=== PATIENT | male | born 1980 | race Caucasian/White ===

== ENCOUNTER 2018-02-20 16:57 | Inpatient (IN) | payer MEDICARE, MEDICAID ==
[2018-02-20] MEDS ORDERED: Sodium Chloride 0.45% 1,000 ML IV ONE (17:00)
[2018-02-20] MEDS ORDERED: Acetaminophen 500 MG TAB PO ONE (17:00)
[2018-02-20] MEDS ORDERED: Haloperidol Lactate 5 mg/mL 1mL Vial IM ONE (17:11)
[2018-02-20] MEDS ORDERED: Haloperidol Lactate 5 mg/mL 1mL Vial IVP ONE (17:11)
[2018-02-20] MEDS ORDERED: Haloperidol Lactate 5 mg/mL 1mL Vial ONE (17:21)
[2018-02-20] MEDS ORDERED: Acetaminophen 500 MG TAB ONE (17:42)
[2018-02-20 17:50] LABS: % EOSINOPHILS 0.3 % (0.0-5.0); % LYMPHOCYTES 12.9 % (20.0-50.0); % MONOCYTES 8.4 % (2.0-10.0); % NEUTROPHILS 76.4 % (40.0-80.0); BASOPHILE ABSOLUTE 0.2 Th/cumm (0-0.2); HEMATOCRIT 47.9 % (41.0-60); HEMOGLOBIN 15.8 gm/dL (12-16); LYMPHOCYTE ABSOLUTE 1.5 Th/cmm (1.5-3.0); MEAN CORPUSCULAR HEMOGLOBIN 29.1 pg (26.0-30.0); MEAN CORPUSCULAR HGB CONC 33.1 pg (28.0-36.0); MEAN PLATELET VOLUME 7.5 fl; NEUTROPHILE ABSOLUTE 9.2 Th/cmm (1.8-8.0); PLATELET COUNT 430 Th/cmm (150-400); RED BLOOD COUNT 5.44 Mil/cmm (4.30-5.70); RED CELL DISTRIBUTION WIDTH 12.3 % (11.5-20.0); WHITE BLOOD COUNT 11.9 Th/cmm (4.8-10.8)
[2018-02-20 17:52] LABS: INR 1.17 (0.5-1.4); PROTHROMBIN TIME (TEST) 12.1 SECONDS (9.5-11.5)
[2018-02-20 17:56] LABS: ALB/GLOB RATIO 1.6 (1.0-1.8); ALBUMIN 4.8 gm/dL (4.2-5.5); ALKALINE PHOSPHATASE 99 U/L (34-104); ANION GAP 19.4 (7.0-16.0); BILIRUBIN,TOTAL 0.6 mg/dL (0.3-1.0); BUN - UREA NITROGEN 31 mg/dL (7-25); CALCIUM SERUM 10.3 mg/dL (8.6-10.3); CARBON DIOXIDE 22.2 mEq/L (21.0-31.0); CHLORIDE 111 mEq/L (98-107); GFR AFRICAN-AMERICAN > 60.0 ml/min (>90); GFR NON AFRICAN-AMERICAN > 60.0 ml/min; GLUCOSE 113 mg/dL (70-105); POTASSIUM SERUM 3.6 mEq/L (3.5-5.1); SGOT 43 U/L (13-39); SGPT/ALT 29 U/L (7-52); SODIUM SERUM 149 mEq/L (136-145); TOTAL PROTEIN,SERUM 7.8 gm/dL (6.0-8.3)
[2018-02-20] MEDS ORDERED: Diatrizoate Meglumine/Diatri 30 mL Sol ONE (18:13)
--- NOTE | 2018-02-20 18:40 | ED Physician Chart ---
ED Chief Complaint/HPI - Patient Information Date Seen:: 02/20/18 Time Seen:: 17:20 Chief Complaint:: g-tube removed History of Present Illness:: this is a 37 yo retarded male sent from a prison for replacement of the g- tube displacement. he is chronically ill and has psychosis. Allergies:: Allergies Allergy/AdvReac Type Severity Reaction Status Date / Time No Known Allergies Allergy Verified 02/20/18 17:08 Vitals:: Vital Signs - 8 hr 02/20/18 17:12 HR 130 RR 20 BP 117/77 O2 Sat % 92 Historian:: Medical Records Review:: Nurse's Note Reviewed, Old Chart Reviewed ED Review of Systems - Review of Systems General/Constitutional: No fever, No chills, No weight loss, No weakness, No diaphoresis, No edema, No loss of appetite, Other (this patient is unable to give a review of systems.) Skin: No skin lesions, No rash, No bruising Head: No headache, No light-headedness Eyes: No loss of vision, No pain, No diplopia ENT: No earache, No nasal drainage, No sore throat, No tinnitus Neck: No neck pain, No swelling, No thyromegaly, No stiffness, No mass noted Cardio Vascular: No chest pain, No palpitations, No PND, No orthopnea, No edema Pulmonary: No SOB, No cough, No sputum, No wheezing GI: No nausea, No vomiting, No diarrhea, No pain, No melena, No hematochezia, No constipation, No hematemesis G/U: No dysuria, No frequency, No hematuria Musculoskeletal: No bone or joint pain, No back pain, No muscle pain Endocrine: No polyuria, No polydipsia Psychiatric: No prior psych history, No depression, No anxiety, No suicidal ideation Hematopoietic: No bruising, No lymphadenopathy Allergic/Immuno: No urticaria, No angioedema Neurological: No syncope, No focal symptoms, No weakness, No paresthesia, No headache, No seizure, No dizziness, No confusion, No vertigo ED Past Medical History - Past Medical History Obtainable: Yes Past Medical History: Dementia Family History: None Social History: Non Smoker, No Alcohol, No Drug Use, Care Facility Surgical History: PEG/GTube Psychiatricy History: Bipolar, Dementia Family Medical History - Family Member Mother History Unknown: Yes Living Status: Still Living ED Physical Exam - Physical Examination General/Constitutional: Awake, Well-developed, well-nourished, Alert, No distress, GCS 15, Non-toxic appearing, Ambulatory Other Gen/Cons comments:: this patient is disoriented times four and unable to communicate. Head: Atraumatic Eyes: Lids, conjuctiva normal, PERRL, EOMI Skin: Nl inspection, No rash, No skin lesions, No ecchymosis, Well hydrated, No lymphadenopathy ENMT: External ears, nose nl, Nasal exam nl, Lips, teeth, gums nl Neck: Nontender, Full ROM w/o pain, No JVD, No nuchal rigidity, No bruit, No mass, No stridor Respiratory: Nl effort/Exclusion, Clear to Auscultation, No Wheeze/Rhonchi/Rales Cardio Vascular: RRR, No murmur, gallop, rubs, NL S1 S2 GI: No tenderness/rebounding/guarding, No organomegaly, No hernia, Normal BS's, Nondistended, No mass/bruits, No McBurney tenderness Other GI comments:: g-tube opening is intact. : No CVA tenderness Extremities: No tenderness or effusion, Full ROM, normal strength in all extremities, No edema, Normal digits & nails Neuro/Psych: Alert/oriented, DTR's symmetric, Normal sensory exam, Normal motor strength, Judgement/insight normal, Mood normal, Normal gait, No focal deficits Misc: Normal back, No paraspinal tenderness ED Labs/Radiology/EKG Results - Lab Results Results: Laboratory Tests 02/20/18 02/20/18 02/20/18 17:21 17:21 17:21 WBC 11.9 H RBC 5.44 Hgb 15.8 Hct 47.9 MCV 88.0 MCH 29.1 MCHC Differential 33.1 RDW 12.3 Plt Count 430 H MPV 7.5 Neutrophils % 76.4 Lymphocytes % 12.9 L Monocytes % 8.4 Eosinophils % 0.3 Basophils % 2.0 PT 12.1 H INR 1.17 PTT (Actin FS) 26.2 Sodium 149 H Potassium 3.6 Chloride 111 H Carbon Dioxide 22.2 Anion Gap 19.4 H BUN 31 H Creatinine 1.0 Est GFR ( Amer) > 60.0 Est GFR (Non-Af Amer) > 60.0 BUN/Creatinine Ratio 31.0 Glucose 113 H Calcium 10.3 Total Bilirubin 0.6 AST 43 H ALT 29 Alkaline Phosphatase 99 Total Protein 7.8 Albumin 4.8 Globulin 3.0 Albumin/Globulin Ratio 1.6 - Radiology Results Results: ct scan of the abdomen = fecal impaction ED Assessment - Assessment General Assessment: fever, fecal impaction, hernia. ED Septic Shock - . Is Septic Shock (SBP<90, OR Lactate>4 mmol\L) present?: No - <6hrs of presentation: Vital Signs: Vital Signs - 8 hr 02/20/ 17:12 HR 130 RR 20 BP 117/77 O2 Sat % 92 ED Reassessment (Disposition) - Diagnosis Diagnosis:: fecal impaction fever dementia - Patient Disposition Discharge/Transfer:: Acute Care w/in this hosp Admitted to:: Med/Surg Admitting Medical Physician:: Aristides Mendoza Condition at Disposition:: Unchanged
[2018-02-20 19:15] LABS: URINE COLOR YELLOW; URINE SOURCE CLEAN CATCH
[2018-02-20 19:16] LABS: URINE BILIRUBIN SMALL (NEGATIVE); URINE CLARITY CLEAR (CLEAR); URINE GLUCOSE (UA) NEGATIVE (NEGATIVE); URINE KETONE 40 mg/dL (NEGATIVE)
[2018-02-20 19:17] LABS: URINE BLOOD NEGATIVE (NEGATIVE); URINE LEUKOCYTE ESTERASE NEGATIVE (NEGATIVE); URINE MICROSCOPIC INDICATED? YES; URINE NITRATE NEGATIVE (NEGATIVE); URINE PROTEIN NEGATIVE (NEGATIVE); URINE UROBILINOGEN 0.2 E.U./dL (0.2 - 1.0)
[2018-02-20 19:18] LABS: URINE BACTERIA FEW /hpf (NONE SEEN); URINE EPITHELIAL CELLS FEW /lpf (FEW); URINE RBC 0-2 /hpf (0-5); URINE WBC 0-2 /hpf (0-5)
[2018-02-20] MEDS ORDERED: Sodium Chloride 0.45% 1,000 ML IV SCH (21:53)
[2018-02-20 23:21] VITALS: BP 120/70
[2018-02-21] MEDS: Lactulose 10 Gm/15 mL 30mL UDC PO SCH ×5 (02:50→19:48)
[2018-02-21] MEDS ORDERED: Haloperidol Lactate 5 mg/mL 1mL Vial IM STA (05:22)
[2018-02-21] MEDS ORDERED: Haloperidol Lactate 5 mg/mL 1mL Vial IM ONE (07:34)
--- NOTE | 2018-02-21 09:53 | Diagnostic Imaging Report ---
CT scan of the abdomen and pelvis without intravenous contrast History: Pain Total DLP equals 570 CTDI equals 10.4 Axial sections were obtained from the xiphoid process down to the pubic symphysis. Generous hepatic size. No focal lesions are seen. The spleen appears somewhat enlarged. No abnormalities are seen in the region of the pancreas. The kidneys appear normal bilaterally. The exam of the pelvis demonstrates a markedly distended stool-filled rectum and sigmoid colon along with mildly dilated large bowel. Findings consistent with changes of fecal impaction/constipation. No abnormal soft tissue masses or fluid collections seen within the pelvis. IMPRESSION: 1. Markedly distended stool-filled rectum and sigmoid colon with mildly distended stool-filled large bowel. Changes consistent with fecal impaction and constipation. 2. Suggestion of hepatosplenomegaly
[2018-02-21] MEDS ORDERED: Fleet Enema 135 mL RC ONE (13:05)
[2018-02-21] MEDS ORDERED: cefTRIAXone 1 GM in Sodium Chloride 0.9% 50 ML IV SCH (17:00)
[2018-02-22] MEDS: Lactulose 10 Gm/15 mL 30mL UDC PO SCH ×4 (00:28→20:43)
--- NOTE | 2018-02-22 00:49 | Consultation ---
DATE OF CONSULTATION: 02/21/2018 The patient was seen and evaluated. The patient's chart reviewed. At the med/surg. REASON FOR CONSULTATION: Agitation. HISTORY OF PRESENT ILLNESS: A 37-year-old male, who was brought in here with a history of developmental delay, brought in here after the patient was found to have a fever, fecal impaction, and presented very agitated and disoriented. Today on [id number] evaluation, the patient needed lot of redirections to maintain simple instructions. He is nonverbal, disengaged in the interview, and attempted to walk away. CURRENT MEDICAL PROBLEMS: Includes fecal impaction and fever. PAST PSYCHIATRIC HISTORY: History of developmental delay. ALLERGIES TO MEDICATION: NKDA. Labs were reviewed. CURRENT MEDICATIONS: The patient is on haloperidol recently given at 7:30 a.m., lactulose, and also on ceftriaxone. FAMILY PSYCHIATRIC HISTORY: Noncontributory. SOCIAL HISTORY: Currently lives in a board and care. MENTAL STATUS EXAMINATION: Developmental delay, nonverbal, disengaged, poor historian, and oriented x 2. ASSESSMENT AND PLAN: The patient is a 37-year-old male. Symptoms are very consistent with delirium secondary to the fecal impaction and fever. We recommend for the primary medical team to continue addressing the underlying medical illnesses that will address the underlying agitation and psychotic behavior. In the meantime to address the agitation behavior, we recommend Seroquel 50 mg p.o. b.i.d. We will be obtaining more collateral based on the information. If the patient continues to refuse p.o. may consider also Haldol 5 mg and 1 mg of Ativan IM or to reduce the risk of constipation with fecal impaction, reduce any anticholinergic, and also recommend to minimize the use of benzodiazepines as they could also exacerbate the patient's delirium. Therefore, recommend to stop the use of Seroquel as noted above. DIAGNOSES: Unspecified psychosis and delirium. SECONDARY DIAGNOSIS: Developmental delay. MEDICAL DIAGNOSIS: Fecal infection. PLAN: 1. No criteria met for 5150. 2. Continue with medication regimen as suggested above. 3. We will continue to follow alongside. Thank you for the consultation. JOB# [id number]
[2018-02-22] MEDS: Haloperidol Lactate 5 mg/mL 1mL Vial IM PRN ×2 (04:20→20:58)
--- NOTE | 2018-02-22 04:50 | History & Physical ---
ADMIT DATE: 02/21/2018 CHIEF COMPLAINT: Fever and agitation. HISTORY OF PRESENT ILLNESS: The patient is a 37-year-old male with a past medical history of mental retardation, brought in from [facility] facility for fever and agitation. On initial evaluation, the patient's temperature was 98.1 degrees Fahrenheit and WBC count was 11,900. The patient is unable to give any history. On further evaluation, the patient was found to have UTI and Rocephin was started. PAST MEDICAL HISTORY: Agitation and dementia. ALLERGIES: NKDA. MEDICATIONS: As per medication reconciliation sheet. SOCIAL HISTORY: The patient lives in a nursing [facility] facility. No history of smoking, alcohol or drug use. PAST SURGICAL HISTORY: PEG placement. PSYCHIATRIC HISTORY: Bipolar, dementia, and psychosis. REVIEW OF SYSTEMS: Unable to obtain. The patient has on and off fevers. The patient was agitated at times. PHYSICAL EXAMINATION: CURRENT VITAL SIGNS: Shows temperature is 100.3 degrees Fahrenheit, pulse 85, respirations 18, blood pressure 161/71. GENERAL: The patient is comfortable, lying in the bed, not in acute distress. HEENT: Head is normocephalic, atraumatic. Oral cavity moist, pink tongue. Eyes: No pallor, no icterus. Pupils PERRLA, EOMI. NECK: Supple, no JVD, no carotid bruit. Trachea in midline. CHEST: Bilateral breath sounds. No crackles or wheezing. HEART: S1, S2 within normal limits. Regular rhythm. No murmur or gallop. ABDOMEN: Soft, nontender, nondistended. Bowel sounds present. EXTREMITIES: No cyanosis, no clubbing, no edema. NEUROLOGIC: Alert and awake. LABORATORY DATA: Current lab shows WBC count is 11,900, hemoglobin 15.8, hematocrit is 47.9, platelets are 430,000, neutrophils 76.4%. INR 1.1. Sodium is 149, potassium 3.6, chloride 111, bicarbonate is 22.2, BUN is 31, creatinine is 1, glucose is 113. AST 43, ALT 29, alkaline phosphatase is 29. Urinalysis showed a few bacteria and leukoesterase negative, wbc's 0-2. Blood culture [address] scan of abdomen and pelvis showed markedly distended stool filled rectum and the sigmoid colon with mildly distended stool filled large bowel consistent with fecal impaction and constipation, hepatosplenomegaly. IMPRESSION: 1. Agitation. 2. Urinary tract infection. 3. Fecal impaction. PLAN: Continue Rocephin and we will give lactulose. Give Fleet enema as needed. Ask for psych consultation. JOB# [id number] [facility]
[2018-02-22 07:12] LABS: HEMOGLOBIN 16.9 gm/dL (12-16)
[2018-02-22 07:15] LABS: HEMATOCRIT 50.1 % (41.0-60); MEAN CELL VOLUME 87.2 fl (80-99); MEAN CORPUSCULAR HEMOGLOBIN 29.5 pg (26.0-30.0); MEAN CORPUSCULAR HGB CONC 33.8 pg (28.0-36.0); MEAN PLATELET VOLUME 7.9 fl; PLATELET COUNT 407 Th/cmm (150-400); RED BLOOD COUNT 5.74 Mil/cmm (4.30-5.70); RED CELL DISTRIBUTION WIDTH 12.8 % (11.5-20.0)
[2018-02-22 07:20] LABS: WHITE BLOOD COUNT 21.3 Th/cmm (4.8-10.8)
[2018-02-22 07:38] LABS: ANION GAP 25.9 (7.0-16.0); BUN - UREA NITROGEN 31 mg/dL (7-25); CALCIUM SERUM 9.2 mg/dL (8.6-10.3); CARBON DIOXIDE 15.1 mEq/L (21.0-31.0); CHLORIDE 125 mEq/L (98-107); CREATININE - SERUM 1.4 mg/dL (0.7-1.3); GFR AFRICAN-AMERICAN > 60.0 ml/min (>90); GFR NON AFRICAN-AMERICAN > 60.0 ml/min; GLUCOSE 114 mg/dL (70-105)
[2018-02-22 07:39] LABS: BAND NEUTROPHILE 4 % (0-10); LYMPHOCYTE 7 % (20-50); NEUTROPHILS 83 % (40-80)
[2018-02-22 07:40] LABS: MONOCYTE 6 % (2-10)
[2018-02-22 07:46] LABS: SODIUM SERUM 163 mEq/L (136-145)
[2018-02-22] MEDS: Benztropine 1 MG TAB PO SCH ×2 (09:28→17:17)
--- NOTE | 2018-02-22 09:54 | Diagnostic Imaging Report ---
KUB abdominal film HISTORY: Pain Nondilated large and small bowel seen. There is a distended stool-filled rectum. Changes suggest fecal impaction. IMPRESSION: 1. Stool filled somewhat distended rectum consistent with a fecal impaction. Bowel gas pattern otherwise nonspecific.
[2018-02-22] MEDS ORDERED: Dextrose 5% 1,000 ML IV SCH (11:30)
[2018-02-22] MEDS ORDERED: D5-0.9%NS 1,000 ML IV SCH (11:30)
[2018-02-22] MEDS ORDERED: Albuterol Nebulizer 2.5mg/3mL HHN PRN (13:11)
[2018-02-22] MEDS ORDERED: Albuterol Nebulizer 2.5mg/3mL HHN ONE (13:25)
[2018-02-22 14:14] LABS: BASOPHILE ABSOLUTE 0.6 Th/cumm (0-0.2); HEMATOCRIT 52.7 % (41.0-60); HEMOGLOBIN 17.8 gm/dL (12-16); LYMPHOCYTE ABSOLUTE 1.3 Th/cmm (1.5-3.0); MEAN CELL VOLUME 87.8 fl (80-99); MEAN CORPUSCULAR HEMOGLOBIN 29.7 pg (26.0-30.0); MEAN CORPUSCULAR HGB CONC 33.8 pg (28.0-36.0); MEAN PLATELET VOLUME 7.9 fl; MONOCYTE ABSOLUTE 1.7 Th/cmm (0.3-1.0); NEUTROPHILE ABSOLUTE 18.4 Th/cmm (1.8-8.0); PLATELET COUNT 399 Th/cmm (150-400); RED CELL DISTRIBUTION WIDTH 12.5 % (11.5-20.0)
[2018-02-22 14:19] LABS: pH 7.44 (7.35-7.45)
[2018-02-22 14:30] LABS: ALB/GLOB RATIO 1.4 (1.0-1.8); ALBUMIN 4.7 gm/dL (4.2-5.5); ALKALINE PHOSPHATASE 98 U/L (34-104); ANION GAP 25.7 (7.0-16.0); BILIRUBIN,TOTAL 1.1 mg/dL (0.3-1.0); BUN - UREA NITROGEN 35 mg/dL (7-25); CALCIUM SERUM 9.4 mg/dL (8.6-10.3); CARBON DIOXIDE 16.2 mEq/L (21.0-31.0); CHLORIDE 125 mEq/L (98-107); CREATININE - SERUM 1.4 mg/dL (0.7-1.3); GFR AFRICAN-AMERICAN > 60.0 ml/min (>90); GFR NON AFRICAN-AMERICAN > 60.0 ml/min; GLUCOSE 130 mg/dL (70-105); SGOT 188 U/L (13-39); SGPT/ALT 76 U/L (7-52)
[2018-02-22] MEDS ORDERED: Vancomycin HCl 1.5 GM in Sodium Chloride 0.9% 500 ML IV ONE (14:30)
[2018-02-22 14:38] LABS: POTASSIUM SERUM 2.9 mEq/L (3.5-5.1); SODIUM SERUM 164 mEq/L (136-145)
[2018-02-22 15:11] LABS: % BASOPHILS 2.6 % (0.0-2.0); % EOSINOPHILS 0.2 % (0.0-5.0); % LYMPHOCYTES 5.7 % (20.0-50.0); % MONOCYTES 7.7 % (2.0-10.0); % NEUTROPHILS 83.8 % (40.0-80.0)
[2018-02-22 15:12] LABS: BAND NEUTROPHILE 1 % (0-10); BASOPHIL 0 % (0-3); EOSINOPHIL 1 % (0-5); LYMPHOCYTE 6 % (20-50); MONOCYTE 7 % (2-10); NEUTROPHILS 85 % (40-80)
[2018-02-22] MEDS ORDERED: Potassium Chloride 40 MEQ, Lidocaine 1% 20mL Vial 25 MG in Sodium Chloride 0.9% 250 ML IV ONE (16:00)
[2018-02-22] MEDS: Levofloxacin 500mg/100mL 500 MG/100 ML BAG IV SCH (16:40)
[2018-02-22] MEDS ORDERED: GENTAMICIN IV ONE (17:00)
[2018-02-22] MEDS ORDERED: Lactulose 10 Gm/15 mL 30mL UDC PO SCH (17:00)
[2018-02-22] MEDS ORDERED: SODIUM CHLORIDE 0.9% IV ONE (17:00)
[2018-02-22] MEDS ORDERED: Magnesium Hydroxide (MOM) 30 mL UDC PO PRN (19:02)
--- NOTE | 2018-02-22 20:07 | History & Physical ---
ADMIT DATE: 02/20/2018 PULMONARY/CRITICAL CARE CONSULTATION NOTE REASON FOR CONSULTATION: Shortness of breath, possibly pneumonia. HISTORY OF PRESENT ILLNESS: This is a 37-year-old gentleman who basically has had history of cerebral palsy over the last couple of months, progressively going downhill and recently was admitted to the [facility], where he was found to have very difficult in swallowing, periodic choking, subsequently had a fever. Subsequently, the patient was admitted to Intensive Care Unit and I was asked to see this patient for further care and necessary treatment. The patient has very high fever of ____. He is quite gurgling noise navas and tachypneic and tachycardic. Meaningful history from the patient is not available, most of the information is obtained by talking to the patient's mother and sister at this time. Over the last couple of months or so, the patient is gradually getting declining and generalized health-navas and has lost some weight. PAST MEDICAL HISTORY: Possibly cerebral palsy ventilated multiple neurological and physical development delay. ALLERGIC HISTORY: Nil. PHYSICAL EXAMINATION: GENERAL: This is a thinnish-looking gentleman, not responding appropriately. No respiratory distress. VITAL SIGNS: The patient's recorded temperature is 99.7. Continues to have high-grade fever now ____, blood pressure 134/89, respiration 30s, heart rate is in 110-120. HEENT: Head is essentially unremarkable. Pupils appear to be equal and reacting to light. Conjunctivae are pale. Oral cavity shows limited exam, some dryness of the mouth, etc. NECK: No nodes in the neck could be palpated. CHEST: Good chest rise. Lot of gurgling secretory noise bilaterally. HEART: Tachycardic. ABDOMEN: Shows bowel filled with some colon felt with possibly a stool fecal mass presentation. EXTREMITIES: Shows multiple areas of contracture flexion deformity. LABORATORY DATA: Chest x-ray is not available and the patient's lab shows white count is 22,000, hemoglobin 17.8 and neutrophils 85. ABG shows significant hyperventilation compensated with pO2 75 on 45% of oxygen. IMPRESSION: The patient has a very likelihood of aspiration pneumonitis with poor mental status or poor ability to mobilize secretions. This is mostly related to mental issue including psychiatric issue. PLANS AND SUGGESTIONS: 1. We will stop feeding totally. 2. We will go ahead and start put an NG tube, give some nutrition as well as some laxative. We will get sputum studies. We will put the patient on a BiPAP and we will cover with broad-spectrum antibiotic, etc., and see how he does and go from there. JOB# [id number]
--- NOTE | 2018-02-22 20:33 | History and Physical ---
History of Present Illness - HPI Vital Signs: Last Vital Signs Temp 100.1 F 02/22/18 19:00 Pulse 118 02/22/18 19:10 Resp 37 02/22/18 19:25 BP 112/71 02/22/18 19:00 Pulse Ox 90 02/22/18 19:25 Family Medical History - Family Member Mother History Unknown: Yes Ethnicity: Unknown Living Status: Unknown Hx Family Cancer: (UNKNOWN) Hx Family Coronary Artery Disease: (UNKNOWN) Hx Family Congestive Heart Failure: (UNKNOWN) Hx Family Hypertension: (UNKNOWN) Hx Family Stroke: (UNKNOWN) Hx Family Diabetes: (UNKNOWN) Hx Family Seizures: (UNKNOWN) Hx Family Dementia: (UNKNOWN) Hx Family AIDS: (UNKNOWN) Hx Family COPD: (UNKNOWN) Hx Family Hepatitis: (UNKNOWN) Hx Family Psychiatric Problems: (UNKNOWN) Hx Family Tuberculosis: (UNKNOWN) Other Medical History: UNKNOWN - Medications Home Medications: Home Medication Medication Instructions Recorded Type Benztropine [Cogentin*] 1 mg PO BID 02/20/18 History Ergocalciferol [Vitamin D2] 50,000 iu PO QSAT 02/20/18 History Melatonin 5 mg PO HS 02/20/18 History OLANZapine ODT [ZyPREXA ZYDIS] 5 mg PO DAILY 02/20/18 History OLANZapine ODT [ZyPREXA ZYDIS] 10 mg PO HS 02/20/18 History QUEtiapine Fumarate [SEROquel] 25 mg PO BID 02/20/18 History QUEtiapine Fumarate [SEROquel] 50 mg PO HS 02/20/18 History Sertraline HCl [Zoloft] 100 mg PO DAILY 02/20/18 History - Allergies Allergies/Adverse Reactions: Allergies Allergy/AdvReac Type Severity Reaction Status Date / Time No Known Allergies Allergy Verified 02/20/18 17:08 - Lab Results All Lab Results last 24 hours: Laboratory Results - last 24 hr 02/22/18 02/22/18 02/22/18 06:55 06:55 13:21 WBC 21.3 H* RBC 5.74 H Hgb 16.9 Hct 50.1 MCV 87.2 MCH 29.5 MCHC Differential 33.8 RDW 12.8 Plt Count 407 H MPV 7.9 Add Manual Diff YES Neutrophils % [employer]ITION HAMMER OPERATOR Band Neutrophils % 4 Lymphocytes % DEMOLITION HAMMER OPERATOR Monocytes % DEMOLITION HAMMER OPERATOR Eosinophils % Basophils % Neutrophils (Manual) 83 H Lymphocytes 7 L Monocytes 6 Eosinophils Basophils Specimen Source Arterial Sample Site RB pH 7.44 pCO2 22.0 L* pO2 75.0 L HCO3 19.2 L Base Excess -7.3 L O2 Saturation 95.0 Ramiro Test NA Vent Rate NA Inspired O2 45 Tidal Volume NA PEEP NA Pressure (ins/psv/peep) NA Critical Value SH Sodium 163 H* Potassium 3.0 L Chloride 125 H Carbon Dioxide 15.1 L Anion Gap 25.9 H BUN 31 H Creatinine 1.4 H Est GFR ( Amer) > 60.0 Est GFR (Non-Af Amer) > 60.0 BUN/Creatinine Ratio 22.1 Glucose 114 H Whole Bld Lactic Acid Calcium 9.2 Total Bilirubin AST ALT Alkaline Phosphatase Total Protein Albumin Globulin Albumin/Globulin Ratio 02/22/18 02/22/18 02/22/18 13:50 13:50 13:50 WBC 22.0 H* RBC 6.00 H Hgb 17.8 Hct 52.7 MCV 87.8 MCH 29.7 MCHC Differential 33.8 RDW 12.5 Plt Count 399 MPV 7.9 Add Manual Diff Neutrophils % 83.8 H Band Neutrophils % 1 Lymphocytes % 5.7 L Monocytes % 7.7 Eosinophils % 0.2 Basophils % 2.6 H Neutrophils (Manual) 85 H Lymphocytes 6 L Monocytes 7 Eosinophils 1 Basophils 0 Specimen Source Sample Site pH pCO2 pO2 HCO3 Base Excess O2 Saturation Ramiro Test Vent Rate Inspired O2 Tidal Volume PEEP Pressure (ins/psv/peep) Critical Value Sodium 164 H* Potassium 2.9 L* Chloride 125 H Carbon Dioxide 16.2 L Anion Gap 25.7 H BUN 35 H Creatinine 1.4 H Est GFR ( Amer) > 60.0 Est GFR (Non-Af Amer) > 60.0 BUN/Creatinine Ratio 25.0 Glucose 130 H Whole Bld Lactic Acid 1.40 Calcium 9.4 Total Bilirubin 1.1 H AST 188 H ALT 76 H Alkaline Phosphatase 98 Total Protein 8.0 Albumin 4.7 Globulin 3.3 Albumin/Globulin Ratio 1.4 Microbiology 02/20/18 17:30 - Preliminary Blood NO GROWTH AFTER 48 HOURS 02/20/18 17:41 - Preliminary Blood NO GROWTH AFTER 48 HOURS 02/20/18 18:48 - Final Nares NO MRSA ISOLATED
[2018-02-22] MEDS: Morphine Sulfate 2 mg/mL 1mL Syr IVP PRN (20:34)
[2018-02-22] MEDS ORDERED: Non-Formulary Item 1 EA (Melatonin [Melatonin] 5 MG) PO SCH (21:00)
[2018-02-23] MEDS ORDERED: Haldol Oral Sol.(concentrate) 10 mg/5 mL Udc PO PRN (05:55)
[2018-02-23] MEDS: Albuterol/Ipratropium Neb 3 ML AERS HHN SCH ×4 (06:33→19:17)
[2018-02-23] MEDS: Budesonide 0.5 Mg/2 mL Ud HHN SCH ×2 (06:34→19:17)
[2018-02-23] MEDS ORDERED: Albuterol/Ipratropium Neb 3 ML AERS HHN SCH (07:00)
[2018-02-23] MEDS ORDERED: Budesonide 0.5 Mg/2 mL Ud HHN SCH (07:00)
[2018-02-23 07:28] LABS: BASOPHILE ABSOLUTE 0.6 Th/cumm (0-0.2); EOSINOPHILE ABSOLUTE 0.1 Th/cmm (0.1-0.4); HEMATOCRIT 50.2 % (41.0-60); HEMOGLOBIN 16.7 gm/dL (12-16); LYMPHOCYTE ABSOLUTE 1.5 Th/cmm (1.5-3.0); MEAN CELL VOLUME 87.4 fl (80-99); MEAN CORPUSCULAR HEMOGLOBIN 29.1 pg (26.0-30.0); MEAN CORPUSCULAR HGB CONC 33.2 pg (28.0-36.0); MEAN PLATELET VOLUME 7.7 fl; MONOCYTE ABSOLUTE 1.3 Th/cmm (0.3-1.0); NEUTROPHILE ABSOLUTE 16.8 Th/cmm (1.8-8.0); PLATELET COUNT 328 Th/cmm (150-400); RED BLOOD COUNT 5.74 Mil/cmm (4.30-5.70); RED CELL DISTRIBUTION WIDTH 12.8 % (11.5-20.0)
[2018-02-23 07:35] LABS: WHITE BLOOD COUNT 20.3 Th/cmm (4.8-10.8)
[2018-02-23 07:44] LABS: ANION GAP 17.9 (7.0-16.0); BUN - UREA NITROGEN 38 mg/dL (7-25); CALCIUM SERUM 8.9 mg/dL (8.6-10.3); CARBON DIOXIDE 21.9 mEq/L (21.0-31.0); CREATININE - SERUM 1.5 mg/dL (0.7-1.3); GFR AFRICAN-AMERICAN > 60.0 ml/min (>90); GFR NON AFRICAN-AMERICAN 56.6 ml/min; GLUCOSE 163 mg/dL (70-105); POTASSIUM SERUM 3.8 mEq/L (3.5-5.1)
[2018-02-23 07:49] LABS: SODIUM SERUM 167 mEq/L (136-145)
[2018-02-23 07:50] LABS: CHLORIDE 131 mEq/L (98-107)
[2018-02-23 08:00] LABS: BAND NEUTROPHILE 1 % (0-10); BASOPHIL 1 % (0-3); LYMPHOCYTE 8 % (20-50); MONOCYTE 9 % (2-10); NEUTROPHILS 81 % (40-80); PLATELET ESTIMATE ADEQUATE (NORMAL)
--- NOTE | 2018-02-23 08:36 | Diagnostic Imaging Report ---
Portable chest x-ray HISTORY: Shortness of breath Compared with the prior exam performed earlier in the day, nasogastric tube is been inserted. The tip extends into the region of the stomach. No focal pulmonary processes. IMPRESSION: 1. Nasogastric tube placement as noted above 2. No focal pulmonary processes
--- NOTE | 2018-02-23 08:36 | Diagnostic Imaging Report ---
Portable chest x-ray HISTORY: Shortness of breath Allowing for a poor inspiration and portable technique, the overall heart size appears normal. No focal pulmonary processes. No hilar or mediastinal abnormalities. IMPRESSION: No acute abnormalities
[2018-02-23] MEDS: Morphine Sulfate 2 mg/mL 1mL Syr IVP PRN ×4 (09:00→22:41)
[2018-02-23] MEDS: Haloperidol Lactate 5 mg/mL 1mL Vial IM PRN ×2 (09:32→21:10)
[2018-02-23] MEDS: Lactulose 10 Gm/15 mL 30mL UDC PO SCH ×3 (09:33→20:32)
[2018-02-23] MEDS: Benztropine 1 MG TAB PO SCH ×2 (09:33→16:19)
[2018-02-23 09:38] LABS: pH 7.47 (7.35-7.45)
[2018-02-23 09:40] LABS: ALLEN TEST PASS
[2018-02-23 10:53] LABS: pH 7.41 (7.35-7.45)
[2018-02-23] MEDS ORDERED: Dextrose 5% 1,000 ML IV SCH (11:45)
--- NOTE | 2018-02-23 12:12 | Consultation ---
DATE OF CONSULTATION: 02/20/2018 RENAL CONSULTATION LOCATION: [facility] ICU bed #7. ATTENDING PHYSICIAN: Dr. Aristides Mendoza. I thank you very much, Dr. Mendoza, for allowing me to participate in the management of this patient of yours. IDENTIFICATION: This is a 37-year-old male patient. The patient is a known case of cerebral palsy, with mental retardation, not able to give much meaningful history. History has been taken from nursing staff, the patient's family and by reviewing old chart. HISTORY OF PRESENT ILLNESS: This is a 37-year-old very unfortunate gentleman who is a known case of cerebral palsy, being care at home and intermittently at the facility. The patient was found to have change in mental status. The patient was evaluated, was found to have a UTI. Antibiotic was started. Meanwhile, the patient was found to have hypernatremia, acute kidney injury and hence renal consultation has been requested. According to the family, there is no history of any vomiting, but the patient is not eating good. The patient does not have anuria, dysuria or hematuria. The patient does have constipation. There is no history of any kidney stone, lupus, diabetes mellitus or hypertension. PAST MEDICAL AND SURGICAL HISTORY: History of agitation, dementia, mental retardation, contracture of the extremities. ALLERGIES: None. SOCIAL HISTORY: No history of alcoholism or smoking. The patient lives in a boarding care. No history of drug use. PHYSICAL EXAMINATION: VITAL SIGNS: Blood pressure 119/78, respiratory rate 25. Intake 700 yesterday, today 1428; output not documented. HEENT: Head atraumatic. No bleeding or discharge from ear, nose or throat. NECK: No stiffness. LUNGS: Good air entry. No rales or rhonchi. HEART: Regular. No rub or gallop. ABDOMEN: Soft, not distended. Bowel sounds present. EXTREMITIES: Trace edema on the ankle. Foot deformity present. NEUROLOGIC: The patient is conscious, but dementia. LABORATORY DATA: WBC 20.3, hemoglobin 16.7. Sodium 167, potassium 3.8, chloride 131, BUN 38, creatinine 1.5, blood sugar 163. Urinalysis: Nitrite negative, bacteria few, specific gravity more than 1.03. ASSESSMENT: 1. Hypernatremia. 2. Water deficit. 3. Acute kidney injury. 4. Leukocytosis. 5. Hypokalemia, corrected. PLAN: 1. Increase D5W IV at 150 mL per hour. 2. Start the patient on water about 250 mL q.4 hour NG tube. 3. Obtain CMP, phosphorus, magnesium in the morning. 4. Once the patient's constipation has been relieved, we will start patient on tube feeding. 5. Repeat urinalysis. Discussed with the patient's family at bedside at length. All questions answered. JOB# [id number]
--- NOTE | 2018-02-23 13:34 | Progress Notes ---
DATE: 02/23/2018 PSYCHIATRIC PROGRESS NOTE SUBJECTIVE: Chart reviewed and the patient interviewed. Also discussed the patient's condition with the staff and reviewed records and labs. The patient is still restless and easily agitated according to the staff. Also, is still in irritable mood and was difficulty following directions. On the other hand, the patient is compliant with taking his medications with no side effect of medications. ASSESSMENT: The patient is still agitated and psychotic. TREATMENT PLAN: Continue monitoring behavior and condition closely. Also, increase Seroquel to 50 mg in the morning and at bedtime and 25 mg at 8 p.m. and continue to follow up. [facility]# [id number]
[2018-02-23] MEDS: Levofloxacin 500mg/100mL 500 MG/100 ML BAG IV SCH (15:27)
--- NOTE | 2018-02-23 17:41 | Internal Medicine Prog Note ---
Internal Medicine Subjective - Subjective Service Date: 02/23/18 Patient seen and examined:: with staff, chart reviewed Patient is:: non-verbal, in bed (on bipap), agitated, confused Internal Medicine Objective - Results Result Diagrams: 02/24/18 04:05 02/24/18 04:05 Recent Labs: Laboratory Last Values WBC 20.3 Th/cmm (4.8-10.8) H* 02/23/18 07:17 RBC 5.74 Mil/cmm (4.30-5.70) H 02/23/18 07:17 Hgb 16.7 gm/dL (12-16) 02/23/18 07:17 Hct 50.2 % (41.0-60) 02/23/18 07:17 MCV 87.4 fl (80-99) 02/23/18 07:17 MCH 29.1 pg (26.0-30.0) 02/23/18 07:17 MCHC Differential 33.2 pg (28.0-36.0) 02/23/18 07:17 RDW 12.8 % (11.5-20.0) 02/23/18 07:17 Plt Count 328 Th/cmm (150-400) 02/23/18 07:17 MPV 7.7 fl 02/23/18 07:17 Add Manual Diff YES 02/23/18 07:17 Neutrophils % 83.8 % (40.0-80.0) H 02/22/18 13:50 Band Neutrophils % 1 % (0-10) 02/23/18 07:17 Lymphocytes % 5.7 % (20.0-50.0) L 02/22/18 13:50 Monocytes % 7.7 % (2.0-10.0) 02/22/18 13:50 Eosinophils % 0.2 % (0.0-5.0) 02/22/18 13:50 Basophils % 2.6 % (0.0-2.0) H 02/22/18 13:50 Neutrophils (Manual) 81 % (40-80) H 02/23/18 07:17 Lymphocytes 8 % (20-50) L 02/23/18 07:17 Monocytes 9 % (2-10) 02/23/18 07:17 Eosinophils 1 % (0-5) 02/22/18 13:50 Basophils 1 % (0-3) 02/23/18 07:17 Platelet Estimate ADEQUATE (NORMAL) 02/23/18 07:17 PT 12.1 SECONDS (9.5-11.5) H 02/20/18 17:21 INR 1.17 (0.5-1.4) 02/20/18 17:21 PTT (Actin FS) 26.2 SECONDS (26.0-38.0) 02/20/18 17:21 Specimen Source Arterial 02/23/18 10:45 Sample Site LB 02/23/18 10:45 pH 7.41 (7.35-7.45) 02/23/18 10:45 pCO2 36.0 mmHg (35.0-45.0) 02/23/18 10:45 pO2 85.0 mmHg (80.0-100.0) 02/23/18 10:45 HCO3 23.8 mEq/L (20.0-26.0) 02/23/18 10:45 Base Excess -1.4 mEq/L (-3.0-3.0) 02/23/18 10:45 O2 Saturation 96.0 % (92.0-100.0) 02/23/18 10:45 Ramiro Test PASS 02/23/18 09:30 Vent Rate 12 02/23/18 10:45 Inspired O2 75 02/23/18 10:45 Tidal Volume NA 02/22/18 13:21 PEEP 4 02/23/18 10:45 Pressure (ins/psv/peep) NA 02/22/18 13:21 Critical Value PW 02/23/18 10:45 Sodium 167 mEq/L (136-145) H* 02/23/18 07:17 Potassium 3.8 mEq/L (3.5-5.1) 02/23/18 07:17 Chloride 131 mEq/L (98-107) H 02/23/18 07:17 Carbon Dioxide 21.9 mEq/L (21.0-31.0) 02/23/18 07:17 Anion Gap 17.9 (7.0-16.0) H 02/23/18 07:17 BUN 38 mg/dL (7-25) H 02/23/18 07:17 Creatinine 1.5 mg/dL (0.7-1.3) H 02/23/18 07:17 Est GFR ( Amer) > 60.0 ml/min (>90) 02/23/18 07:17 Est GFR (Non-Af Amer) 56.6 ml/min 02/23/18 07:17 BUN/Creatinine Ratio 25.3 02/23/18 07:17 Glucose 163 mg/dL (70-105) H 02/23/18 07:17 Whole Bld Lactic Acid 1.40 mmol/L (0.60-1.99) 02/22/18 13:50 Calcium 8.9 mg/dL (8.6-10.3) 02/23/18 07:17 Total Bilirubin 1.1 mg/dL (0.3-1.0) H 02/22/18 13:50 AST 188 U/L (13-39) H 02/22/18 13:50 ALT 76 U/L (7-52) H 02/22/18 13:50 Alkaline Phosphatase 98 U/L (34-104) 02/22/18 13:50 Total Protein 8.0 gm/dL (6.0-8.3) 02/22/18 13:50 Albumin 4.7 gm/dL (4.2-5.5) 02/22/18 13:50 Globulin 3.3 gm/dL 02/22/18 13:50 Albumin/Globulin Ratio 1.4 (1.0-1.8) 02/22/18 13:50 TSH 0.96 uIU/ml (0.34-5.60) 02/20/18 17:21 Urine Source CLEAN CATCH 02/20/18 18:48 Urine Color YELLOW 02/20/18 18:48 Urine Clarity CLEAR (CLEAR) 02/20/18 18:48 Urine pH 5.0 (4.6 - 8.0) 02/20/18 18:48 Ur Specific [place] > 1.030 (1.005-1.030) H 02/20/18 18:48 Urine Protein NEGATIVE mg/dL (NEGATIVE) 02/20/18 18:48 Urine Glucose (UA) NEGATIVE mg/dL (NEGATIVE) 02/20/18 18:48 Urine Ketones 40 mg/dL (NEGATIVE) H 02/20/18 18:48 Urine Blood NEGATIVE (NEGATIVE) 02/20/18 18:48 Urine Nitrate NEGATIVE (NEGATIVE) 02/20/18 18:48 Urine Bilirubin SMALL (NEGATIVE) H 02/20/18 18:48 Urine Urobilinogen 0.2 E.U./dL (0.2 - 1.0) 02/20/18 18:48 Ur Leukocyte Esterase NEGATIVE (NEGATIVE) 02/20/18 18:48 Urine RBC 0-2 /hpf (0-5) H 02/20/18 18:48 Urine WBC 0-2 /hpf (0-5) 02/20/18 18:48 Ur Epithelial Cells FEW /lpf (FEW) 02/20/18 18:48 Urine Bacteria FEW /hpf (NONE SEEN) 02/20/18 18:48 Urine Mucus FEW /lpf (FEW) 02/20/18 18:48 Vancomycin Trough 25.5 ug/mL (5-10) H 02/23/18 07:17 - Physical Exam Vitals and I&O: Vital Signs Temp 98.8 F 02/23/18 17:00 Pulse 114 02/23/18 17:00 Resp 32 02/23/18 17:18 BP 111/70 02/23/18 17:00 Pulse Ox 93 02/23/18 17:18 Intake & Output 02/22/18 02/23/18 02/23/18 18:59 06:59 18:59 Intake Total 978 450 850 Balance 978 450 850 Weight (lbs) 68.067 kg 67.784 kg Intake: Intake, IV Amount 958 450 200 Gentamicin 320 mg In 258 Sodium Chloride 0.9% 250 ml @ 250 mls/hr IV ONCE ONE Rx#:[id number] Levofloxacin 500mg/100mL 100 100 500 mg In 100 ml @ 100 mls/hr IV Q24HR [facility] [place] Rx#: [id number] Piperacillin Sodium/ 100 200 100 Tazobact 4.5 gm In Sodium Chloride 0.9% 100 ml @ 100 mls/hr IV Q8HR [facility] [place] Rx #:[id number] Vancomycin HCl 1.25 gm In 250 Sodium Chloride 0.9% 250 ml @ 165 mls/hr IV Q8H [facility] [place] Rx#:[id number] Oral 20 Other 650 Other: # Voids 5 4 # Bowel Movements 4 3 Stool Characteristics Soft Liquid Soft Liquid Brown Liquid Brown Brown Weight Source Bedscale Bedscale Active Medications: Current Medications Acetaminophen (Tylenol 650mg Supp) 650 mg RC Q6H PRN PRN Reason: Fever > 101 Stop: 04/23/18 20:18 Last Admin: 02/23/18 04:18 Dose: 650 mg Albuterol Sulfate (Albuterol 2.5mg/3ml Neb Ud) 2.5 mg HHN Q4H PRN PRN Reason: Shortness of Breath or Wheeze Stop: 04/23/18 13:10 Last Admin: 02/22/18 13:27 Dose: 2.5 mg Albuterol/Ipratropium (Duoneb Neb) 3 ml HHN [id number] [facility] [place] Stop: 04/24/18 06:59 Last Admin: 02/23/18 15:17 Dose: 3 ml Benztropine Mesylate (Cogentin) 1 mg PO BID [facility] [place] Stop: 04/23/18 08:59 Last Admin: 02/23/18 16:19 Dose: 1 mg Budesonide (Pulmicort) 0.5 mg HHN BIDRT [facility] [place] Stop: 04/24/18 06:59 Last Admin: 02/23/18 06:34 Dose: 0.5 mg Ergocalciferol (Vitamin D2) 50,000 iu PO QSAT [facility] [place] Stop: 04/28/18 08:59 Haloperidol Lactate (Haldol) 5 mg IM Q8H PRN PRN Reason: Agitation Stop: 04/24/18 06:47 Last Admin: 02/23/18 09:32 Dose: 5 mg Piperacillin Sod/Tazobactam (Sod 4.5 gm/ Sodium Chloride) 100 mls @ 100 mls/hr IV Q8HR [facility] [place] Stop: 04/23/18 12:59 Last Infusion: 02/23/18 14:00 Dose: Infused Levofloxacin (Levaquin Pb) 500 mg in 100 mls @ 100 mls/hr IV Q24HR [facility] [place] Stop: 04/23/18 15:59 Last Infusion: 02/23/18 16:29 Dose: Infused Vancomycin HCl 1 gm/ Sodium (Chloride) 250 mls @ 165 mls/hr IV Q12H [facility] [place] Stop: 04/24/18 20:59 Dextrose (D5w) 1,000 mls @ 125 mls/hr IV .Q8H [facility] [place] Stop: 04/24/18 11:44 Last Admin: 02/23/18 12:00 Dose: 125 mls/hr Lactulose (Cephulac) 30 gm PO TID [facility] [place] Stop: 04/23/18 20:59 Last Admin: 02/23/18 13:27 Dose: 30 gm Lorazepam (Ativan) 1 mg IM Q12HR PRN; Protocol PRN Reason: Agitation Stop: 04/22/18 08:59 Last Admin: 02/23/18 16:18 Dose: 1 mg Magnesium Hydroxide (Milk Of Magnesia) 30 ml PO HS PRN PRN Reason: Constipation Stop: 04/23/18 19:01 Miscellaneous (Vancomycin Iv Per Pharmacy) 1 ea PRN PRN PRN Reason: PROTOCOL Stop: 04/23/18 13:20 Miscellaneous (Zosyn Iv Per Pharmacy) 1 ea PRN PRN PRN Reason: PROTOCOL Stop: 04/23/18 19:06 Morphine Sulfate (Morphine) 1 mg IVP Q4H PRN PRN Reason: Severe Pain Stop: 04/23/18 20:17 Last Admin: 02/23/18 13:25 Dose: 1 mg Quetiapine Fumarate (Seroquel) 50 mg PO HS [facility] [place]; Protocol Stop: 04/24/18 08:59 Last Admin: 02/23/18 09:36 Dose: 50 mg Quetiapine Fumarate (Seroquel) 25 mg PO DAILY [facility] [place]; Protocol Stop: 04/24/18 14:59 Last Admin: 02/23/18 15:27 Dose: 25 mg General: lethargic, congested, demented Neck: Supple, No JVD Internal Medicine Assmt/Plan - Assessment Assessment: sepsis leukocytosis hypernatrimia jose acute respiratory insuffiency h/o mental challenge h/o dementia tacypnia/tacycardia - Plan Plan: continue antibiotics bipap oxygen fluids fallow consultants reccmendation
--- NOTE | 2018-02-23 19:42 | History & Physical ---
ADMIT DATE: 02/20/2018 PULMONARY PROGRESS NOTE PROBLEM LIST: 1. Aspiration tracheobronchitis. 2. Fever. 3. Underlying significant physical and mental challenge issue. SYMPTOMS: Nil. The patient's FiO2 had to be increased yesterday. Still on a BiPAP, but more calmer today. No respiratory distress, etc. PHYSICAL EXAMINATION: GENERAL: Currently on a BiPAP, in no distress. VITAL SIGNS: The patient's recorded vital signs temperature is 98.4. Respiration is in low 20s to low 30s and heart rate is 112 and currently on a BiPAP 75%. NECK: Essentially unremarkable. CHEST: Shows occasional rhonchi with diminished air entry. HEART: Regular. ABDOMEN: Soft, nontender, and had some bowel movement. LABORATORY DATA: White count is 20.3, neutrophils 81%. ABG, pO2 is 85 on 75% of oxygen. Sodium is 167, chloride is 113, creatinine is 1.5, and BUN is 38. IMPRESSION: The patient appears to be intravascular volume depletion with elevation of sodium, still requires high flow oxygen for his respiratory status. PLANS AND SUGGESTIONS: We will increase IV fluids, etc. We will repeat another blood gases tomorrow, etc. including chest x-ray. Please note x-ray is clear today. JOB# [id number]
[2018-02-23] MEDS: Dextrose 5% 1,000 ML IV SCH (19:54)
--- NOTE | 2018-02-24 00:01 | Infectious Disease Prog Note ---
Infectious Disease Subjective - Review of Systems Service Date: 02/23/18 Subjective: There is no new change. Clinically better, on bipap. Infectious Disease Objective - Results Result Diagrams: 02/25/18 03:50 02/25/18 03:50 Recent Labs: Laboratory Last Values WBC 20.3 Th/cmm (4.8-10.8) H* 02/23/18 07:17 RBC 5.74 Mil/cmm (4.30-5.70) H 02/23/18 07:17 Hgb 16.7 gm/dL (12-16) 02/23/18 07:17 Hct 50.2 % (41.0-60) 02/23/18 07:17 MCV 87.4 fl (80-99) 02/23/18 07:17 MCH 29.1 pg (26.0-30.0) 02/23/18 07:17 MCHC Differential 33.2 pg (28.0-36.0) 02/23/18 07:17 RDW 12.8 % (11.5-20.0) 02/23/18 07:17 Plt Count 328 Th/cmm (150-400) 02/23/18 07:17 MPV 7.7 fl 02/23/18 07:17 Add Manual Diff YES 02/23/18 07:17 Neutrophils % 83.8 % (40.0-80.0) H 02/22/18 13:50 Band Neutrophils % 1 % (0-10) 02/23/18 07:17 Lymphocytes % 5.7 % (20.0-50.0) L 02/22/18 13:50 Monocytes % 7.7 % (2.0-10.0) 02/22/18 13:50 Eosinophils % 0.2 % (0.0-5.0) 02/22/18 13:50 Basophils % 2.6 % (0.0-2.0) H 02/22/18 13:50 Neutrophils (Manual) 81 % (40-80) H 02/23/18 07:17 Lymphocytes 8 % (20-50) L 02/23/18 07:17 Monocytes 9 % (2-10) 02/23/18 07:17 Eosinophils 1 % (0-5) 02/22/18 13:50 Basophils 1 % (0-3) 02/23/18 07:17 Platelet Estimate ADEQUATE (NORMAL) 02/23/18 07:17 PT 12.1 SECONDS (9.5-11.5) H 02/20/18 17:21 INR 1.17 (0.5-1.4) 02/20/18 17:21 PTT (Actin FS) 26.2 SECONDS (26.0-38.0) 02/20/18 17:21 Specimen Source Arterial 02/23/18 10:45 Sample Site LB 02/23/18 10:45 pH 7.41 (7.35-7.45) 02/23/18 10:45 pCO2 36.0 mmHg (35.0-45.0) 02/23/18 10:45 pO2 85.0 mmHg (80.0-100.0) 02/23/18 10:45 HCO3 23.8 mEq/L (20.0-26.0) 02/23/18 10:45 Base Excess -1.4 mEq/L (-3.0-3.0) 02/23/18 10:45 O2 Saturation 96.0 % (92.0-100.0) 02/23/18 10:45 Ramiro Test PASS 02/23/18 09:30 Vent Rate 12 02/23/18 10:45 Inspired O2 75 02/23/18 10:45 Tidal Volume NA 02/22/18 13:21 PEEP 4 02/23/18 10:45 Pressure (ins/psv/peep) NA 02/22/18 13:21 Critical Value PW 02/23/18 10:45 Sodium 167 mEq/L (136-145) H* 02/23/18 07:17 Potassium 3.8 mEq/L (3.5-5.1) 02/23/18 07:17 Chloride 131 mEq/L (98-107) H 02/23/18 07:17 Carbon Dioxide 21.9 mEq/L (21.0-31.0) 02/23/18 07:17 Anion Gap 17.9 (7.0-16.0) H 02/23/18 07:17 BUN 38 mg/dL (7-25) H 02/23/18 07:17 Creatinine 1.5 mg/dL (0.7-1.3) H 02/23/18 07:17 Est GFR ( Amer) > 60.0 ml/min (>90) 02/23/18 07:17 Est GFR (Non-Af Amer) 56.6 ml/min 02/23/18 07:17 BUN/Creatinine Ratio 25.3 02/23/18 07:17 Glucose 163 mg/dL (70-105) H 02/23/18 07:17 Whole Bld Lactic Acid 1.40 mmol/L (0.60-1.99) 02/22/18 13:50 Calcium 8.9 mg/dL (8.6-10.3) 02/23/18 07:17 Total Bilirubin 1.1 mg/dL (0.3-1.0) H 02/22/18 13:50 AST 188 U/L (13-39) H 02/22/18 13:50 ALT 76 U/L (7-52) H 02/22/18 13:50 Alkaline Phosphatase 98 U/L (34-104) 02/22/18 13:50 Total Protein 8.0 gm/dL (6.0-8.3) 02/22/18 13:50 Albumin 4.7 gm/dL (4.2-5.5) 02/22/18 13:50 Globulin 3.3 gm/dL 02/22/18 13:50 Albumin/Globulin Ratio 1.4 (1.0-1.8) 02/22/18 13:50 TSH 0.96 uIU/ml (0.34-5.60) 02/20/18 17:21 Urine Source CLEAN CATCH 02/20/18 18:48 Urine Color YELLOW 02/20/18 18:48 Urine Clarity CLEAR (CLEAR) 02/20/18 18:48 Urine pH 5.0 (4.6 - 8.0) 02/20/18 18:48 Ur Specific [place] > 1.030 (1.005-1.030) H 02/20/18 18:48 Urine Protein NEGATIVE mg/dL (NEGATIVE) 02/20/18 18:48 Urine Glucose (UA) NEGATIVE mg/dL (NEGATIVE) 02/20/18 18:48 Urine Ketones 40 mg/dL (NEGATIVE) H 02/20/18 18:48 Urine Blood NEGATIVE (NEGATIVE) 02/20/18 18:48 Urine Nitrate NEGATIVE (NEGATIVE) 02/20/18 18:48 Urine Bilirubin SMALL (NEGATIVE) H 02/20/18 18:48 Urine Urobilinogen 0.2 E.U./dL (0.2 - 1.0) 02/20/18 18:48 Ur Leukocyte Esterase NEGATIVE (NEGATIVE) 02/20/18 18:48 Urine RBC 0-2 /hpf (0-5) H 02/20/18 18:48 Urine WBC 0-2 /hpf (0-5) 02/20/18 18:48 Ur Epithelial Cells FEW /lpf (FEW) 02/20/18 18:48 Urine Bacteria FEW /hpf (NONE SEEN) 02/20/18 18:48 Urine Mucus FEW /lpf (FEW) 02/20/18 18:48 Vancomycin Trough 25.5 ug/mL (5-10) H 02/23/18 07:17 - Physical Exam Vitals and I&O: Vital Signs Temp 100.4 F 02/23/18 20:00 Pulse 127 02/23/18 22:00 Resp 32 02/23/18 22:49 BP 120/80 02/23/18 22:00 Pulse Ox 94 02/23/18 22:49 Intake & Output 02/23/18 02/23/18 02/24/18 06:59 18:59 06:59 Intake Total 450 850 100 Balance 450 850 100 Weight (lbs) 67.784 kg Intake: Intake, IV Amount 450 200 100 Levofloxacin 500mg/100mL 100 500 mg In 100 ml @ 100 mls/hr IV Q24HR [facility] Rx#: [id number] Piperacillin Sodium/ 200 100 100 Tazobact 4.5 gm In Sodium Chloride 0.9% 100 ml @ 100 mls/hr IV Q8HR [facility] Rx #:[id number] Vancomycin HCl 1.25 gm In 250 Sodium Chloride 0.9% 250 ml @ 165 mls/hr IV Q8H [facility] Rx#:[id number] Other 650 Other: # Voids 4 # Bowel Movements 3 Stool Characteristics Liquid Soft Brown Liquid Brown Weight Source Bedscale Active Medications: Current Medications Acetaminophen (Tylenol 650mg Supp) 650 mg RC Q6H PRN PRN Reason: Fever > 101 Stop: 04/23/18 20:18 Last Admin: 02/23/18 04:18 Dose: 650 mg Albuterol Sulfate (Albuterol 2.5mg/3ml Neb Ud) 2.5 mg HHN Q4H PRN PRN Reason: Shortness of Breath or Wheeze Stop: 04/23/18 13:10 Last Admin: 02/22/18 13:27 Dose: 2.5 mg Albuterol/Ipratropium (Duoneb Neb) 3 ml HHN [id number] [facility] Stop: 04/24/18 06:59 Last Admin: 02/23/18 19:17 Dose: 3 ml Benztropine Mesylate (Cogentin) 1 mg PO BID [facility] Stop: 04/23/18 08:59 Last Admin: 02/23/18 16:19 Dose: 1 mg Budesonide (Pulmicort) 0.5 mg HHN BIDRT [facility] Stop: 04/24/18 06:59 Last Admin: 02/23/18 19:17 Dose: 0.5 mg Ergocalciferol (Vitamin D2) 50,000 iu PO QSAT [facility] Stop: 04/28/18 08:59 Haloperidol Lactate (Haldol) 5 mg IM Q8H PRN PRN Reason: Agitation Stop: 04/24/18 06:47 Last Admin: 02/23/18 21:10 Dose: 5 mg Piperacillin Sod/Tazobactam (Sod 4.5 gm/ Sodium Chloride) 100 mls @ 100 mls/hr IV Q8HR [facility] Stop: 04/23/18 12:59 Last Infusion: 02/23/18 21:35 Dose: Infused Levofloxacin (Levaquin Pb) 500 mg in 100 mls @ 100 mls/hr IV Q24HR [facility] Stop: 04/23/18 15:59 Last Infusion: 02/23/18 16:29 Dose: Infused Vancomycin HCl 1 gm/ Sodium (Chloride) 250 mls @ 165 mls/hr IV Q12H [facility] Stop: 04/24/18 20:59 Last Admin: 02/23/18 21:43 Dose: 165 mls/hr Dextrose (D5w) 1,000 mls @ 150 mls/hr IV .Q6H40M [facility] Stop: 04/24/18 19:29 Last Admin: 02/23/18 19:54 Dose: 150 mls/hr Lactulose (Cephulac) 30 gm PO TID [facility] Stop: 04/23/18 20:59 Last Admin: 02/23/18 20:32 Dose: 30 gm Lorazepam (Ativan) 1 mg IM Q12HR PRN; Protocol PRN Reason: Agitation Stop: 04/22/18 08:59 Last Admin: 02/23/18 16:18 Dose: 1 mg Magnesium Hydroxide (Milk Of Magnesia) 30 ml PO HS PRN PRN Reason: Constipation Stop: 04/23/18 19:01 Miscellaneous (Vancomycin Iv Per Pharmacy) 1 ea PRN PRN PRN Reason: PROTOCOL Stop: 04/23/18 13:20 Miscellaneous (Zosyn Iv Per Pharmacy) 1 ea PRN PRN PRN Reason: PROTOCOL Stop: 04/23/18 19:06 Morphine Sulfate (Morphine) 1 mg IVP Q4H PRN PRN Reason: Severe Pain Stop: 04/23/18 20:17 Last Admin: 02/23/18 22:41 Dose: 1 mg Quetiapine Fumarate (Seroquel) 50 mg PO HS [facility]; Protocol Stop: 04/24/18 08:59 Last Admin: 02/23/18 20:33 Dose: 50 mg Quetiapine Fumarate (Seroquel) 25 mg PO DAILY [facility]; Protocol Stop: 04/24/18 14:59 Last Admin: 02/23/18 15:27 Dose: 25 mg General: no acute distress, well developed, well nourished HEENT: atraumatic, normocephalic Neck: supple, thyromegaly Cardiovascular: S1S2, regular Lungs: clear to auscultation bilaterally, clear to percussion Abdomen: soft, no tender Extremities: no cyanosis Neurological: awake Infectious Disease Assmt/Plan - Assessment Assessment: 1. Sepsis. 2. UTI> 3. Renal failure., 4. Stool impaction. 5. Mental retardation. 6. Respiratory failure. 7. Pneumionia. - Plan Plan: Continue the same treatment.
[2018-02-24] MEDS: Morphine Sulfate 2 mg/mL 1mL Syr IVP PRN ×2 (02:52→22:47)
[2018-02-24] MEDS: Dextrose 5% 1,000 ML IV SCH ×2 (03:01→16:51)
--- NOTE | 2018-02-24 03:43 | Progress Notes ---
DATE: 02/22/2018 INFECTIOUS DISEASE PROGRESS NOTE SUBJECTIVE: Acute events. The patient was very agitated, not controlled by multiple staff. 1:1 sister was not even helping him. He was put on restraints. The patient started developing fevers yesterday 02/24/2018. Antibiotic, Rocephin was changed to Zosyn. The patient's WBC count also went to 21,000 and creatinine jumped to 1.4. The patient is not able to give any meaningful history, although the patient has multiple febrile episodes. The patient also has some chills. OBJECTIVE: VITAL SIGNS: Currently shows temperature is 100.3 degrees Fahrenheit, pulse 119, respirations 20, blood pressure 119/75. GENERAL: The patient is comfortable, restless. HEENT: Head is normocephalic, atraumatic. Oral cavity moist, pink tongue. No pallor, no icterus. PERRLA, EOMI. NECK: Supple, no JVD, no carotid bruit. Trachea midline. CHEST: Bilateral breath sounds. Crackles present bilaterally. HEART: S1, S2 within normal limits. Regular rhythm. No murmur, no gallop. ABDOMEN: Soft, tenderness present, generalized. Bowel sounds present. EXTREMITIES: No cyanosis, no clubbing, no edema. NEUROLOGIC: Alert and awake. Confused. CURRENT LABORATORY DATA: Shows WBC count is 21,300, hemoglobin 16.9, hematocrit 50.1, platelets are 407,000, neutrophil is 83%. Sodium is 163, potassium 3.8, chloride 125, bicarbonate is 15, BUN is 25.9, creatinine 1.4, glucose is 114. Lactic acid was ordered. ASSESSMENT: 1. Sepsis. 2. Respiratory distress with a drop in oxygen saturation, suspect pneumonia. 3. Acute renal failure and acute kidney injury, most likely dehydration versus vancomycin for his mental retardation. 4. Urinary tract infection. 5. Fecal impaction. RECOMMENDATION AND PLAN: We will give IV fluid support. Currently, the patient's fluid changed to D5 water at 100 mL per hour. Sepsis workup was performed. Antibiotics were changed to vancomycin and Zosyn. Gentamicin 1 dose will be given as the patient has significant deterioration in his condition. We will consult Dr. Darren Mendoza for hypoxia and respiratory insufficiency and possible aspiration pneumonia and renal consultation with Dr. Thee Reyes. Discussed with Dr. Arroyo. [facility]# [id number] MTDD
[2018-02-24 04:30] LABS: % BASOPHILS 2.5 % (0.0-2.0); % EOSINOPHILS 0.1 % (0.0-5.0); % LYMPHOCYTES 10.3 % (20.0-50.0); % MONOCYTES 7.8 % (2.0-10.0); % NEUTROPHILS 79.3 % (40.0-80.0); BASOPHILE ABSOLUTE 0.3 Th/cumm (0-0.2); HEMATOCRIT 48.2 % (41.0-60); HEMOGLOBIN 16.1 gm/dL (12-16); LYMPHOCYTE ABSOLUTE 1.4 Th/cmm (1.5-3.0); MEAN CELL VOLUME 88.6 fl (80-99); MEAN CORPUSCULAR HEMOGLOBIN 29.5 pg (26.0-30.0); MEAN CORPUSCULAR HGB CONC 33.3 pg (28.0-36.0); MEAN PLATELET VOLUME 8.2 fl; MONOCYTE ABSOLUTE 1.1 Th/cmm (0.3-1.0); NEUTROPHILE ABSOLUTE 10.9 Th/cmm (1.8-8.0); PLATELET COUNT 256 Th/cmm (150-400); RED BLOOD COUNT 5.44 Mil/cmm (4.30-5.70); RED CELL DISTRIBUTION WIDTH 12.8 % (11.5-20.0); WHITE BLOOD COUNT 13.7 Th/cmm (4.8-10.8)
[2018-02-24 04:42] LABS: ALB/GLOB RATIO 1.5 (1.0-1.8); ALBUMIN 3.8 gm/dL (4.2-5.5); ALKALINE PHOSPHATASE 77 U/L (34-104); ANION GAP 15.1 (7.0-16.0); BILIRUBIN,TOTAL 1.6 mg/dL (0.3-1.0); BUN - UREA NITROGEN 27 mg/dL (7-25); CALCIUM SERUM 8.6 mg/dL (8.6-10.3); CARBON DIOXIDE 25.2 mEq/L (21.0-31.0); CHLORIDE 124 mEq/L (98-107); CREATININE - SERUM 1.4 mg/dL (0.7-1.3); GFR AFRICAN-AMERICAN > 60.0 ml/min (>90); GFR NON AFRICAN-AMERICAN > 60.0 ml/min; GLUCOSE 152 mg/dL (70-105); PHOSPHOROUS 2.7 mg/dL (2.5-5.0); POTASSIUM SERUM 3.3 mEq/L (3.5-5.1); SGOT 168 U/L (13-39); SGPT/ALT 92 U/L (7-52); TOTAL PROTEIN,SERUM 6.4 gm/dL (6.0-8.3)
[2018-02-24 05:03] LABS: SODIUM SERUM 161 mEq/L (136-145)
[2018-02-24] MEDS: Budesonide 0.5 Mg/2 mL Ud HHN SCH ×2 (07:04→18:46)
[2018-02-24] MEDS: Albuterol/Ipratropium Neb 3 ML AERS HHN SCH ×4 (07:04→18:46)
--- NOTE | 2018-02-24 08:36 | Diagnostic Imaging Report ---
CHEST X-RAY: AP view INDICATION: Shortness of breath COMPARISON: 02/23/2018 FINDINGS: NG tube is within the stomach. Low lung volumes are seen with increased bibasilar lung markings. Heart size is at the upper limits of normal. IMPRESSION: Low lung volumes and increased bibasal lung markings which may be due to atelectasis, however, faint bibasal infiltrates cannot be excluded. NG tube within the stomach.
--- NOTE | 2018-02-24 08:36 | Diagnostic Imaging Report ---
KUB single view HISTORY: Abdominal pain. COMPARISON: KUB on 02/22/2018 FINDINGS: An NG tube is partially visualized within the stomach. Copious stool is seen within the descending colon and, sigmoid colon and rectum the distal fecal impaction and generalized gaseous filled loops of bowel are also noted greatest along the right upper abdomen. There is spinal scoliosis. IMPRESSION: Copious stool extending from the descending colon to the rectum with distal fecal impaction. Generalized gaseous filled loops of bowel are also noted greatest along the right upper quadrant. Please correlate clinically for possible constipation and ileus.
[2018-02-24] MEDS ORDERED: KCL 20mEq/100mL Premix 20 MEQ/100 ML PIGGYBACK IV ONE (09:16)
[2018-02-24] MEDS: Lactulose 10 Gm/15 mL 30mL UDC PO SCH ×3 (09:38→21:13)
[2018-02-24] MEDS: Haloperidol Lactate 5 mg/mL 1mL Vial IM PRN (10:55)
[2018-02-24 11:09] LABS: pH 7.46 (7.35-7.45)
[2018-02-24] MEDS: Menthol/Zinc Oxide Oint 113gm Tube TP SCH (13:07)
[2018-02-24] MEDS: Levofloxacin 500mg/100mL 500 MG/100 ML BAG IV SCH (15:04)
--- NOTE | 2018-02-24 15:37 | General Progress Note ---
Subjective - Review of Systems Service Date: 02/24/18 Events since last encounter: temperature still trending high pt still tacycardc tachypnic on bipap Objective - Results Result Diagrams: 02/24/18 04:05 02/24/18 04:05 Recent Labs: Laboratory Last Values WBC 13.7 Th/cmm (4.8-10.8) H D 02/24/18 04:05 RBC 5.44 Mil/cmm (4.30-5.70) 02/24/18 04:05 Hgb 16.1 gm/dL (12-16) 02/24/18 04:05 Hct 48.2 % (41.0-60) 02/24/18 04:05 MCV 88.6 fl (80-99) 02/24/18 04:05 MCH 29.5 pg (26.0-30.0) 02/24/18 04:05 MCHC Differential 33.3 pg (28.0-36.0) 02/24/18 04:05 RDW 12.8 % (11.5-20.0) 02/24/18 04:05 Plt Count 256 Th/cmm (150-400) D 02/24/18 04:05 MPV 8.2 fl 02/24/18 04:05 Add Manual Diff YES 02/23/18 07:17 Neutrophils % 79.3 % (40.0-80.0) 02/24/18 04:05 Band Neutrophils % 1 % (0-10) 02/23/18 07:17 Lymphocytes % 10.3 % (20.0-50.0) L 02/24/18 04:05 Monocytes % 7.8 % (2.0-10.0) 02/24/18 04:05 Eosinophils % 0.1 % (0.0-5.0) 02/24/18 04:05 Basophils % 2.5 % (0.0-2.0) H 02/24/18 04:05 Neutrophils (Manual) 81 % (40-80) H 02/23/18 07:17 Lymphocytes 8 % (20-50) L 02/23/18 07:17 Monocytes 9 % (2-10) 02/23/18 07:17 Eosinophils 1 % (0-5) 02/22/18 13:50 Basophils 1 % (0-3) 02/23/18 07:17 Platelet Estimate ADEQUATE (NORMAL) 02/23/18 07:17 PT 12.1 SECONDS (9.5-11.5) H 02/20/18 17:21 INR 1.17 (0.5-1.4) 02/20/18 17:21 PTT (Actin FS) 26.2 SECONDS (26.0-38.0) 02/20/18 17:21 Specimen Source Arterial 02/24/18 10:12 Sample Site RB 02/24/18 10:12 pH 7.46 (7.35-7.45) H 02/24/18 10:12 pCO2 37.0 mmHg (35.0-45.0) 02/24/18 10:12 pO2 87.0 mmHg (80.0-100.0) 02/24/18 10:12 HCO3 26.9 mEq/L (20.0-26.0) H 02/24/18 10:12 Base Excess 2.5 mEq/L (-3.0-3.0) 02/24/18 10:12 O2 Saturation 97.0 % (92.0-100.0) 02/24/18 10:12 Ramiro Test NA 02/24/18 10:12 Vent Rate 5 02/24/18 10:12 Inspired O2 75 02/24/18 10:12 Tidal Volume 300 02/24/18 10:12 PEEP 5 02/24/18 10:12 Pressure (ins/psv/peep) NA 02/24/18 10:12 Critical Value LQ 02/24/18 10:12 Sodium 161 mEq/L (136-145) H* 02/24/18 04:05 Potassium 3.3 mEq/L (3.5-5.1) L 02/24/18 04:05 Chloride 124 mEq/L (98-107) H 02/24/18 04:05 Carbon Dioxide 25.2 mEq/L (21.0-31.0) 02/24/18 04:05 Anion Gap 15.1 (7.0-16.0) 02/24/18 04:05 BUN 27 mg/dL (7-25) H 02/24/18 04:05 Creatinine 1.4 mg/dL (0.7-1.3) H 02/24/18 04:05 Est GFR ( Amer) > 60.0 ml/min (>90) 02/24/18 04:05 Est GFR (Non-Af Amer) > 60.0 ml/min 02/24/18 04:05 BUN/Creatinine Ratio 19.3 02/24/18 04:05 Glucose 152 mg/dL (70-105) H 02/24/18 04:05 POC Glucose 121 MG/DL (70-105) H 02/20/18 17:06 Whole Bld Lactic Acid 1.40 mmol/L (0.60-1.99) 02/22/18 13:50 Calcium 8.6 mg/dL (8.6-10.3) 02/24/18 04:05 Phosphorus 2.7 mg/dL (2.5-5.0) 02/24/18 04:05 Total Bilirubin 1.6 mg/dL (0.3-1.0) H 02/24/18 04:05 AST 168 U/L (13-39) H 02/24/18 04:05 ALT 92 U/L (7-52) H 02/24/18 04:05 Alkaline Phosphatase 77 U/L (34-104) 02/24/18 04:05 Total Protein 6.4 gm/dL (6.0-8.3) 02/24/18 04:05 Albumin 3.8 gm/dL (4.2-5.5) L 02/24/18 04:05 Globulin 2.6 gm/dL 02/24/18 04:05 Albumin/Globulin Ratio 1.5 (1.0-1.8) 02/24/18 04:05 TSH 0.96 uIU/ml (0.34-5.60) 02/20/18 17:21 Urine Source CLEAN CATCH 02/20/18 18:48 Urine Color YELLOW 02/20/18 18:48 Urine Clarity CLEAR (CLEAR) 02/20/18 18:48 Urine pH 5.0 (4.6 - 8.0) 02/20/18 18:48 Ur Specific [place] > 1.030 (1.005-1.030) H 02/20/18 18:48 Urine Protein NEGATIVE mg/dL (NEGATIVE) 02/20/18 18:48 Urine Glucose (UA) NEGATIVE mg/dL (NEGATIVE) 02/20/18 18:48 Urine Ketones 40 mg/dL (NEGATIVE) H 02/20/18 18:48 Urine Blood NEGATIVE (NEGATIVE) 02/20/18 18:48 Urine Nitrate NEGATIVE (NEGATIVE) 02/20/18 18:48 Urine Bilirubin SMALL (NEGATIVE) H 02/20/18 18:48 Urine Urobilinogen 0.2 E.U./dL (0.2 - 1.0) 02/20/18 18:48 Ur Leukocyte Esterase NEGATIVE (NEGATIVE) 02/20/18 18:48 Urine RBC 0-2 /hpf (0-5) H 02/20/18 18:48 Urine WBC 0-2 /hpf (0-5) 02/20/18 18:48 Ur Epithelial Cells FEW /lpf (FEW) 02/20/18 18:48 Urine Bacteria FEW /hpf (NONE SEEN) 02/20/18 18:48 Urine Mucus FEW /lpf (FEW) 02/20/18 18:48 Vancomycin Trough 25.5 ug/mL (5-10) H 02/23/18 07:17 - Physical Exam Vitals and I&O: Vital Signs Temp 99.6 F 02/24/18 14:00 Pulse 124 02/24/18 14:00 Resp 43 02/24/18 14:00 BP 132/88 02/24/18 14:00 Pulse Ox 95 02/24/18 14:00 Intake & Output 02/23/18 02/24/18 02/24/18 18:59 06:59 18:59 Intake Total 850 2300 Balance 850 2300 Weight (lbs) 67.784 kg 57.153 kg Intake: Intake, IV Amount 200 1450 Dextrose 5% 1,000 ml @ 1000 150 mls/hr IV .Q6H40M [facility] Rx#:[id number] Levofloxacin 500mg/100mL 100 500 mg In 100 ml @ 100 mls/hr IV Q24HR [facility] Rx#: [id number] Piperacillin Sodium/ 100 200 Tazobact 4.5 gm In Sodium Chloride 0.9% 100 ml @ 100 mls/hr IV Q8HR [facility] Rx #:[id number] Vancomycin HCl 1 gm In 250 Sodium Chloride 0.9% 250 ml @ 165 mls/hr IV Q12H [facility] Rx#:[id number] Other 650 850 Other: # Voids 4 4 # Bowel Movements 3 4 Stool Characteristics Soft Soft Soft Liquid Liquid Brown Brown Brown Weight Source Bedscale Bedscale Active Medications: Current Medications Acetaminophen (Tylenol 650mg Supp) 650 mg RC Q6H PRN PRN Reason: Fever > 101 Stop: 04/23/18 20:18 Last Admin: 02/24/18 11:55 Dose: 650 mg Albuterol Sulfate (Albuterol 2.5mg/3ml Neb Ud) 2.5 mg HHN Q4H PRN PRN Reason: Shortness of Breath or Wheeze Stop: 04/23/18 13:10 Last Admin: 02/22/18 13:27 Dose: 2.5 mg Albuterol/Ipratropium (Duoneb Neb) 3 ml HHN [id number] [facility] Stop: 04/24/18 06:59 Last Admin: 02/24/18 15:20 Dose: 3 ml Budesonide (Pulmicort) 0.5 mg HHN BIDRT [facility] Stop: 04/24/18 06:59 Last Admin: 02/24/18 07:04 Dose: 0.5 mg Calamine/Phenol (Calmoseptine) 1 appl TP DAILY [facility] Stop: 04/25/18 11:59 Last Admin: 02/24/18 13:07 Dose: 1 appl Ergocalciferol (Vitamin D2) 50,000 iu PO QSAT [facility] Stop: 04/28/18 08:59 Haloperidol Lactate (Haldol) 3 mg IM Q8H PRN PRN Reason: Agitation Stop: 04/24/18 06:47 Last Admin: 02/24/18 10:55 Dose: 3 mg Piperacillin Sod/Tazobactam (Sod 4.5 gm/ Sodium Chloride) 100 mls @ 100 mls/hr IV Q8HR [facility] Stop: 04/23/18 12:59 Last Admin: 02/24/18 13:07 Dose: 100 mls/hr Levofloxacin (Levaquin Pb) 500 mg in 100 mls @ 100 mls/hr IV Q24HR [facility] Stop: 04/23/18 15:59 Last Admin: 02/24/18 15:04 Dose: 100 mls/hr Vancomycin HCl 1 gm/ Sodium (Chloride) 250 mls @ 165 mls/hr IV Q12H [facility] Stop: 04/24/18 20:59 Last Admin: 02/24/18 09:38 Dose: 165 mls/hr Dextrose (D5w) 1,000 mls @ 150 mls/hr IV .Q6H40M [facility] Stop: 04/24/18 19:29 Last Admin: 02/24/18 03:01 Dose: 150 mls/hr Insulin Aspart (Novolog Insulin Sliding Scale) 0 units SUBQ Q6H [facility]; Protocol Stop: 04/26/18 11:59 Lactulose (Cephulac) 30 gm PO TID [facility] Stop: 04/23/18 20:59 Last Admin: 02/24/18 15:04 Dose: 30 gm Lorazepam (Ativan) 1 mg IVP Q6HR PRN; Protocol PRN Reason: Agitation Stop: 04/25/18 09:06 Last Admin: 02/24/18 15:16 Dose: 1 mg Magnesium Hydroxide (Milk Of Magnesia) 30 ml PO HS PRN PRN Reason: Constipation Stop: 04/23/18 19:01 Miscellaneous (Vancomycin Iv Per Pharmacy) 1 ea PRN PRN PRN Reason: PROTOCOL Stop: 04/23/18 13:20 Miscellaneous (Zosyn Iv Per Pharmacy) 1 ea PRN PRN PRN Reason: PROTOCOL Stop: 04/23/18 19:06 Miscellaneous (Ppn Per Pharmacy) 1 ea PRN PRN PRN Reason: PROTOCOL Stop: 04/25/18 12:21 Morphine Sulfate (Morphine) 1 mg IVP Q4H PRN PRN Reason: Severe Pain Stop: 04/23/18 20:17 Last Admin: 02/24/18 02:52 Dose: 1 mg General: Alert, No acute distress, Moderate distress HEENT: Atraumatic, Mucous membr. moist/pink, Other (on bipap) Neck: Supple Cardiovascular: Regular rate Lungs: Other (bilateral crackles) Abdomen: Bowel sounds Extremities: Pulses Psych/Mental Status: Other (confused) Assessment/Plan - Assessment Assessment: sepsis respiratory distress, r/o pna acute renal failure UTI Fecal impaction - Plan Plan: cpm
--- NOTE | 2018-02-24 19:26 | History & Physical ---
ADMIT DATE: 02/24/2018 PROBLEM LIST: 1. Persistent tachypnea, persistent hypoxemia. 2. Persistent fever. History of cerebral palsy. The patient is shaking, earlier temperature was about 101, was given Tylenol, still lot of tremors around. No respiratory distress. Currently on a BiPAP. PHYSICAL EXAMINATION: VITAL SIGNS: T-max earlier 101.1, blood pressure 140/63, respirations in 30s and 40s, saturation is 94 on 75% of BiPAP. NECK: Veins not visualized. CHEST: Shows diminished air entry with occasional rhonchi. HEART: Regular. ABDOMEN: Soft, nontender. EXTREMITIES: Shows no peripheral edema. Chest x-ray shows some minimal haziness in the left base, but otherwise unremarkable. LABORATORY DATA: White count is trending down to 13.7 and the patient's basophil is 2.1. ABG, pO2 is 87. This is on 75% of oxygen. ASSESSMENT: Electrolytes show sodium of 161 and chloride is 124 and SGOT mildly elevated. IMPRESSION: 1. The patient continues to have fever, exact issue not clear, doubt respiratory. 2. Persistent shakiness rule out other source of infectious pathology. 3. Hypoxemia can be explained based on current x-ray finding. PLANS AND SUGGESTIONS: We will go ahead and continue BiPAP, repeat following the repeat test, etc., discussed with the nursing staff, etc., and go from there. JOB# [id number]
--- NOTE | 2018-02-25 00:36 | Progress Notes ---
DATE: 02/24/2018 SUBJECTIVE: Chart reviewed and the patient interviewed. Also, discussed the patient's condition with the staff and reviewed records and labs. The patient is still restless and still shaky. Also, is still anxious. The patient also was given Ativan to calm him down several times. It seemed that the patient has some akathisia from the effect of the antipsychotic medications. ASSESSMENT: The patient is still agitated, but slightly easier to redirect her. TREATMENT PLAN: Continue to monitor his behavior closely. Also, we stopped Seroquel. Also, we will decrease Haldol to 3 mg on a p.r.n. basis and we will give Ativan on a p.r.n. basis. We will continue to follow up. JOB# [id number]
[2018-02-25] MEDS: Dextrose 5% 1,000 ML IV SCH ×3 (02:17→20:54)
[2018-02-25 04:34] LABS: WHITE BLOOD COUNT 14.5 Th/cmm (4.8-10.8)
[2018-02-25 04:35] LABS: CORRECTED WBC 14.5 Th/cmm; HEMATOCRIT 44.2 % (41.0-60); HEMOGLOBIN 14.5 gm/dL (12-16); MEAN CELL VOLUME 87.9 fl (80-99); MEAN CORPUSCULAR HEMOGLOBIN 28.8 pg (26.0-30.0); MEAN CORPUSCULAR HGB CONC 32.8 pg (28.0-36.0); PHOSPHOROUS 2.6 mg/dL (2.5-5.0); RED BLOOD COUNT 5.03 Mil/cmm (4.30-5.70); RED CELL DISTRIBUTION WIDTH 12.5 % (11.5-20.0)
[2018-02-25 04:36] LABS: % BASOPHILS 3.1 % (0.0-2.0); % EOSINOPHILS 1.7 % (0.0-5.0); % LYMPHOCYTES 12.9 % (20.0-50.0); % MONOCYTES 6.4 % (2.0-10.0); % NEUTROPHILS 75.9 % (40.0-80.0); MEAN PLATELET VOLUME 7.7 fl; PLATELET COUNT 229 Th/cmm (150-400)
[2018-02-25 04:38] LABS: ALB/GLOB RATIO 1.4 (1.0-1.8); ALBUMIN 3.4 gm/dL (4.2-5.5); ALKALINE PHOSPHATASE 70 U/L (34-104); ANION GAP 14.4 (7.0-16.0); BILIRUBIN,DIRECT 0.24 mg/dL (0.0-0.2); BILIRUBIN,TOTAL 1.1 mg/dL (0.3-1.0); BUN - UREA NITROGEN 25 mg/dL (7-25); CALCIUM SERUM 8.4 mg/dL (8.6-10.3); CARBON DIOXIDE 26.1 mEq/L (21.0-31.0); CHLORIDE 119 mEq/L (98-107); CREATININE - SERUM 1.1 mg/dL (0.7-1.3); GFR AFRICAN-AMERICAN > 60.0 ml/min (>90); GFR NON AFRICAN-AMERICAN > 60.0 ml/min; GLUCOSE 126 mg/dL (70-105); MAGNESIUM 2.6 mg/dL (1.9-2.7); POTASSIUM SERUM 3.5 mEq/L (3.5-5.1); SGOT 157 U/L (13-39); SGPT/ALT 94 U/L (7-52); SODIUM SERUM 156 mEq/L (136-145); TOTAL PROTEIN,SERUM 5.9 gm/dL (6.0-8.3)
--- NOTE | 2018-02-25 05:19 | Progress Notes ---
DATE: 02/24/2018 LOCATION: [facility] ICU bed #7. SUBJECTIVE: The patient is receiving free water NG tube and IV fluids for hypernatremia. The patient's urine output is improving. No history of vomiting or diarrhea in the last 24 hours, respiration 34, saturation 96. PHYSICAL EXAMINATION: VITAL SIGNS: Blood pressure 136/70, heart rate 118. Yesterday's intake 1428, output not available. HEART: Regular, tachycardia. LUNGS: Good air entry. ABDOMEN: Soft. EXTREMITIES: No edema. LABORATORY DATA: WBC 13.7, decreased from 20.3. Sodium improved from 167-161, potassium 3.3, chloride 124, CO2 of 25, BUN improved from 38-27, creatinine down from 1.5-1.4, phosphorus normal. Calcium normal. ASSESSMENT: 1. Acute kidney injury, improving. 2. Hypernatremia, improving. 3. Water deficit, improving. 4. Leukocytosis. 5. Hypokalemia, corrected. PLAN: 1. Continue IV D5W. 2. Continue water in the G-tube. 3. KCl rider today. 4. BMP in the morning. 5. Discussed with nursing staff. JOB# [id number]
[2018-02-25 06:04] LABS: EOSINOPHILE ABSOLUTE 1.7 Th/cmm (0.1-0.4); LYMPHOCYTE ABSOLUTE 12.9 Th/cmm (1.5-3.0); MONOCYTE ABSOLUTE 6.4 Th/cmm (0.3-1.0); NEUTROPHILE ABSOLUTE 75.9 Th/cmm (1.8-8.0)
[2018-02-25 06:05] LABS: BASOPHILE ABSOLUTE 3.1 Th/cumm (0-0.2)
[2018-02-25] MEDS: Albuterol/Ipratropium Neb 3 ML AERS HHN SCH ×4 (07:05→19:04)
[2018-02-25] MEDS: Budesonide 0.5 Mg/2 mL Ud HHN SCH ×2 (07:05→19:04)
--- NOTE | 2018-02-25 08:30 | Diagnostic Imaging Report ---
Portable chest x-ray HISTORY: Shortness of breath Compared with prior exam of 02/24/2018, questionable infiltrate seen in the left lower lobe. Pneumonia cannot be excluded. Clinical correlation is needed. IMPRESSION: 1. Suggestion of interval development of infiltrate left lower lobe. Pneumonia cannot be excluded. Clinical correlation is needed.
[2018-02-25] MEDS: Menthol/Zinc Oxide Oint 113gm Tube TP SCH (09:00)
[2018-02-25] MEDS: Lactulose 10 Gm/15 mL 30mL UDC PO SCH ×3 (09:15→20:58)
[2018-02-25] MEDS: Morphine Sulfate 2 mg/mL 1mL Syr IVP PRN ×3 (09:15→20:00)
--- NOTE | 2018-02-25 13:29 | Infectious Disease Prog Note ---
Infectious Disease Subjective - Review of Systems Service Date: 02/25/18 Subjective: There is no new change. Clinically better, on bipap. Fever curve is normalizing. Infectious Disease Objective - Results Result Diagrams: 02/25/18 03:50 02/25/18 03:50 Recent Labs: Laboratory Last Values WBC 14.5 Th/cmm (4.8-10.8) H 02/25/18 03:50 Corrected WBC (auto) 14.5 Th/cmm 02/25/18 03:50 RBC 5.03 Mil/cmm (4.30-5.70) 02/25/18 03:50 Hgb 14.5 gm/dL (12-16) 02/25/18 03:50 Hct 44.2 % (41.0-60) 02/25/18 03:50 MCV 87.9 fl (80-99) 02/25/18 03:50 MCH 28.8 pg (26.0-30.0) 02/25/18 03:50 MCHC Differential 32.8 pg (28.0-36.0) 02/25/18 03:50 RDW 12.5 % (11.5-20.0) 02/25/18 03:50 Plt Count 229 Th/cmm (150-400) 02/25/18 03:50 MPV 7.7 fl 02/25/18 03:50 Add Manual Diff YES 02/23/18 07:17 Neutrophils % 75.9 % (40.0-80.0) 02/25/18 03:50 Band Neutrophils % 1 % (0-10) 02/23/18 07:17 Lymphocytes % 12.9 % (20.0-50.0) L 02/25/18 03:50 Monocytes % 6.4 % (2.0-10.0) 02/25/18 03:50 Eosinophils % 1.7 % (0.0-5.0) 02/25/18 03:50 Basophils % 3.1 % (0.0-2.0) H 02/25/18 03:50 Neutrophils (Manual) 81 % (40-80) H 02/23/18 07:17 Lymphocytes 8 % (20-50) L 02/23/18 07:17 Monocytes 9 % (2-10) 02/23/18 07:17 Eosinophils 1 % (0-5) 02/22/18 13:50 Basophils 1 % (0-3) 02/23/18 07:17 Platelet Estimate ADEQUATE (NORMAL) 02/23/18 07:17 PT 12.1 SECONDS (9.5-11.5) H 02/20/18 17:21 INR 1.17 (0.5-1.4) 02/20/18 17:21 PTT (Actin FS) 26.2 SECONDS (26.0-38.0) 02/20/18 17:21 Specimen Source Arterial 02/24/18 10:12 Sample Site RB 02/24/18 10:12 pH 7.46 (7.35-7.45) H 02/24/18 10:12 pCO2 37.0 mmHg (35.0-45.0) 02/24/18 10:12 pO2 87.0 mmHg (80.0-100.0) 02/24/18 10:12 HCO3 26.9 mEq/L (20.0-26.0) H 02/24/18 10:12 Base Excess 2.5 mEq/L (-3.0-3.0) 02/24/18 10:12 O2 Saturation 97.0 % (92.0-100.0) 02/24/18 10:12 Ramiro Test NA 02/24/18 10:12 Vent Rate 5 02/24/18 10:12 Inspired O2 75 02/24/18 10:12 Tidal Volume 300 02/24/18 10:12 PEEP 5 02/24/18 10:12 Pressure (ins/psv/peep) NA 02/24/18 10:12 Critical Value LQ 02/24/18 10:12 Sodium 156 mEq/L (136-145) H 02/25/18 03:50 Potassium 3.5 mEq/L (3.5-5.1) 02/25/18 03:50 Chloride 119 mEq/L (98-107) H 02/25/18 03:50 Carbon Dioxide 26.1 mEq/L (21.0-31.0) 02/25/18 03:50 Anion Gap 14.4 (7.0-16.0) 02/25/18 03:50 BUN 25 mg/dL (7-25) 02/25/18 03:50 Creatinine 1.1 mg/dL (0.7-1.3) 02/25/18 03:50 Est GFR ( Amer) > 60.0 ml/min (>90) 02/25/18 03:50 Est GFR (Non-Af Amer) > 60.0 ml/min 02/25/18 03:50 BUN/Creatinine Ratio 22.7 02/25/18 03:50 Glucose 126 mg/dL (70-105) H 02/25/18 03:50 POC Glucose 121 MG/DL (70-105) H 02/20/18 17:06 Whole Bld Lactic Acid 1.40 mmol/L (0.60-1.99) 02/22/18 13:50 Calcium 8.4 mg/dL (8.6-10.3) L 02/25/18 03:50 Phosphorus 2.6 mg/dL (2.5-5.0) 02/25/18 03:50 Magnesium 2.6 mg/dL (1.9-2.7) 02/25/18 03:50 Total Bilirubin 1.1 mg/dL (0.3-1.0) H 02/25/18 03:50 Direct Bilirubin 0.24 mg/dL (0.0-0.2) H 02/25/18 03:50 AST 157 U/L (13-39) H 02/25/18 03:50 ALT 94 U/L (7-52) H 02/25/18 03:50 Alkaline Phosphatase 70 U/L (34-104) 02/25/18 03:50 Total Protein 5.9 gm/dL (6.0-8.3) L 02/25/18 03:50 Albumin 3.4 gm/dL (4.2-5.5) L 02/25/18 03:50 Globulin 2.5 gm/dL 02/25/18 03:50 Albumin/Globulin Ratio 1.4 (1.0-1.8) 02/25/18 03:50 Triglycerides 130 mg/dL (<150) 02/25/18 03:50 Cholesterol 158 mg/dL (<200) 02/25/18 03:50 TSH 0.96 uIU/ml (0.34-5.60) 02/20/18 17:21 Urine Source CLEAN CATCH 02/20/18 18:48 Urine Color YELLOW 02/20/18 18:48 Urine Clarity CLEAR (CLEAR) 02/20/18 18:48 Urine pH 5.0 (4.6 - 8.0) 02/20/18 18:48 Ur Specific [place] > 1.030 (1.005-1.030) H 02/20/18 18:48 Urine Protein NEGATIVE mg/dL (NEGATIVE) 02/20/18 18:48 Urine Glucose (UA) NEGATIVE mg/dL (NEGATIVE) 02/20/18 18:48 Urine Ketones 40 mg/dL (NEGATIVE) H 02/20/18 18:48 Urine Blood NEGATIVE (NEGATIVE) 02/20/18 18:48 Urine Nitrate NEGATIVE (NEGATIVE) 02/20/18 18:48 Urine Bilirubin SMALL (NEGATIVE) H 02/20/18 18:48 Urine Urobilinogen 0.2 E.U./dL (0.2 - 1.0) 02/20/18 18:48 Ur Leukocyte Esterase NEGATIVE (NEGATIVE) 02/20/18 18:48 Urine RBC 0-2 /hpf (0-5) H 02/20/18 18:48 Urine WBC 0-2 /hpf (0-5) 02/20/18 18:48 Ur Epithelial Cells FEW /lpf (FEW) 02/20/18 18:48 Urine Bacteria FEW /hpf (NONE SEEN) 02/20/18 18:48 Urine Mucus FEW /lpf (FEW) 02/20/18 18:48 Vancomycin Trough 11.6 ug/mL (5-10) H 02/24/18 19:47 - Physical Exam Vitals and I&O: Vital Signs Temp 100 F 02/25/18 12:00 Pulse 110 02/25/18 12:00 Resp 38 02/25/18 12:00 BP 140/78 02/25/18 12:00 Pulse Ox 99 02/25/18 12:00 Intake & Output 02/24/18 02/25/18 02/25/18 18:59 06:59 18:59 Intake Total 2100 2300 1000 Balance 2100 2300 1000 Weight (lbs) 57.153 kg 57.153 kg Intake: Intake, IV Amount 1350 1450 1000 Dextrose 5% 1,000 ml @ 1000 1000 1000 150 mls/hr IV .Q6H40M [facility] Rx#:[id number] Piperacillin Sodium/ 100 200 Tazobact 4.5 gm In Sodium Chloride 0.9% 100 ml @ 100 mls/hr IV Q8HR [facility] Rx #:[id number] Vancomycin HCl 1 gm In 250 250 Sodium Chloride 0.9% 250 ml @ 165 mls/hr IV Q12H [facility] Rx#:[id number] Oral 0 Other 750 850 Other: # Voids 3 4 # Bowel Movements 2 1 Stool Characteristics Soft Soft Soft Brown Brown Brown Weight Source Bedscale Bedscale Active Medications: Current Medications Acetaminophen (Tylenol 650mg Supp) 650 mg RC Q6H PRN PRN Reason: Fever > 101 Stop: 04/23/18 20:18 Last Admin: 02/25/18 05:52 Dose: 650 mg Albuterol Sulfate (Albuterol 2.5mg/3ml Neb Ud) 2.5 mg HHN Q4H PRN PRN Reason: Shortness of Breath or Wheeze Stop: 04/23/18 13:10 Last Admin: 02/22/18 13:27 Dose: 2.5 mg Albuterol/Ipratropium (Duoneb Neb) 3 ml HHN [id number] [facility] Stop: 04/24/18 06:59 Last Admin: 02/25/18 11:24 Dose: 3 ml Budesonide (Pulmicort) 0.5 mg HHN BIDRT [facility] Stop: 04/24/18 06:59 Last Admin: 02/25/18 07:05 Dose: 0.5 mg Calamine/Phenol (Calmoseptine) 1 appl TP DAILY [facility] Stop: 04/25/18 11:59 Last Admin: 02/24/18 13:07 Dose: 1 appl Ergocalciferol (Vitamin D2) 50,000 iu PO QSAT [facility] Stop: 04/28/18 08:59 Haloperidol Lactate (Haldol) 3 mg IM Q8H PRN PRN Reason: Agitation Stop: 04/24/18 06:47 Last Admin: 02/24/18 10:55 Dose: 3 mg Piperacillin Sod/Tazobactam (Sod 4.5 gm/ Sodium Chloride) 100 mls @ 100 mls/hr IV Q8HR [facility] Stop: 04/23/18 12:59 Last Infusion: 02/25/18 05:50 Dose: Infused Levofloxacin (Levaquin Pb) 500 mg in 100 mls @ 100 mls/hr IV Q24HR [facility] Stop: 04/23/18 15:59 Last Admin: 02/24/18 15:04 Dose: 100 mls/hr Vancomycin HCl 1 gm/ Sodium (Chloride) 250 mls @ 165 mls/hr IV Q12H [facility] Stop: 04/24/18 20:59 Last Admin: 02/25/18 09:15 Dose: 165 mls/hr Dextrose (D5w) 1,000 mls @ 150 mls/hr IV .Q6H40M [facility] Stop: 04/24/18 19:29 Last Admin: 02/25/18 11:48 Dose: 150 mls/hr Multivitamins/Minerals 10 ml/ (Amino Acids) 1,010 mls @ 70 mls/hr IV .[id number] [facility] Stop: 04/26/18 17:59 Vancomycin HCl 1.25 gm/ Sodium (Chloride) 250 mls @ 165 mls/hr IV Q12H [facility] Stop: 04/26/18 20:59 Insulin Aspart (Novolog Insulin Sliding Scale) 0 units SUBQ Q6H [facility]; Protocol Stop: 04/26/18 11:59 Lactulose (Cephulac) 30 gm PO TID [facility] Stop: 04/23/18 20:59 Last Admin: 02/25/18 09:15 Dose: 30 gm Lorazepam (Ativan) 1 mg IVP Q6HR PRN; Protocol PRN Reason: Agitation Stop: 04/25/18 09:06 Last Admin: 02/24/18 15:16 Dose: 1 mg Magnesium Hydroxide (Milk Of Magnesia) 30 ml PO HS PRN PRN Reason: Constipation Stop: 04/23/18 19:01 Miscellaneous (Vancomycin Iv Per Pharmacy) 1 ea PRN PRN PRN Reason: PROTOCOL Stop: 04/23/18 13:20 Miscellaneous (Zosyn Iv Per Pharmacy) 1 ea PRN PRN PRN Reason: PROTOCOL Stop: 04/23/18 19:06 Miscellaneous (Ppn Per Pharmacy) 1 ea PRN PRN PRN Reason: PROTOCOL Stop: 04/25/18 12:21 Morphine Sulfate (Morphine) 1 mg IVP Q4H PRN PRN Reason: Severe Pain Stop: 04/23/18 20:17 Last Admin: 02/25/18 09:15 Dose: 1 mg General: no acute distress, well developed, well nourished HEENT: atraumatic, normocephalic, PERRLA, EOMI Neck: supple, no thyromegaly Cardiovascular: S1S2, regular Lungs: clear to auscultation bilaterally, clear to percussion Abdomen: soft, no tender, no distended, no mass Extremities: no cyanosis, no clubbing, no edema Neurological: awake, alert, oriented Skin: intact Infectious Disease Assmt/Plan - Assessment Assessment: 1. Sepsis. 2. UTI. 3. Renal failure., 4. Stool impaction. 5. Mental retardation. 6. Respiratory failure. 7. Pneumionia. - Plan Plan: Continue the same treatment. Nutritional Asmnt/Malnutr-PDOC - Dietary Evaluation Malnutrition Findings (Please click <Entered> for more info): Nutritional Asmnt/Malnutrition Start: 02/24/18 14: 50 Text: Status: Complete Freq: Protocol: Document 02/24/18 14:50 LCHENG (Rec: 02/24/18 15:37 [email or web address]) Nutritional Asmnt/Malnutrition Patient General Information Nutritional Screening Moderate Risk Diagnosis fecal impaction, psychosis Pertinent Medical Hx/Surgical Hx PEG, Gtobue, bipolar, demntia, possible cerebral paysy, ventilated, multiple neurilogical and physical development Subjective Information Pt seen resting in bed at time of visit, on bipap. VINCENT Esparza stated pt still in respiratory stress, on bipap most of the day, has aspiration pneumonia, so far no plan for tube feeding. Pt had NGT inserted noted, only ordered water flush. pt on NPO from 02/22. Current Diet Order/ Nutrition Support NPO Pertinent Medications D5w, vit D2, novolog, levaquin , piperacillin, vancomycin Pertinent Labs 02/24 Na 161, K 3.3, cl 124, BUN 27, Cr 1.4, glucose 152, Alb 3.8 02/23 na 167, K 3.8, Cl 131, BUN 38, Cr 1.5, glucose 163 Nutritional Hx/Data Height 1.68 m Height (Calculated Centimeters) 167.6 Current Weight (lbs) 57.153 kg Weight (Calculated Kilograms) 57.2 Weight (Calculated Grams) 26247.6 [place] Body Weight 142 Body Mass Index (BMI) 20.3 Weight Status Approriate GI Symptoms GI Symptoms None Last BM 02/24 x 4 Difficult in: None Skin Integrity/Comment: reddened to parietal, nose, upper anterior forehead Current %PO Negligible < 25% Estimated Nutritional Goals BEE in Kcals: Using Current wt Calories/Kcals/Kg 30-35 Kcals Calculated 5241-6555 Protein: Using Current wt Protein g/k.2 monitor renal labs Protein Calculated 68 Fluid: ml 1709-1994ml (1ml/kcal) Nutritional Problem 2. Problem Problem altered nutrition related labs Etiology possible renal dysfunction and electrolytes imbalance Signs/Symptoms: Na 161, K 3.3, cl 124, BUN 27, Cr 1.4 1. Problem Problem inadequate food intake Etiology aspiration risk and respiratory stress Signs/Symptoms: pt on NPO x 3 days Intervention/Recommendation Comments 1. Monitor NPO status. Recommend starting PPN for nutrition intake. RN Vilma notified. 2. Monitor wt, labs and skin integrity 3. F/U as high risk in 2-3 days Expected Outcomes/Goals Expected Outcomes/Goals 1. Pt to meet at least 75% of nutritional needs with nutrition support. 2. Wt stability, skin to remain intact, labs to approach WNL.
[2018-02-25] MEDS: INSULIN ASPART SLIDING SCALE 100 UNITS/ML UNIT SUBQ SCH ×2 (13:40→19:42)
[2018-02-25] MEDS: Levofloxacin 500mg/100mL 500 MG/100 ML BAG IV SCH (16:00)
--- NOTE | 2018-02-25 16:56 | History & Physical ---
ADMIT DATE: 02/20/2018 PROBLEM LIST: 1. Respiratory failure. 2. History suggestive of aspiration. 3. Febrile episode. 4. Physically and mentally development delay. SYMPTOMS: Nil. Much quieter today and mildly tachypneic, no respiratory distress, still on a BiPAP, currently on 60% of oxygen. PHYSICAL EXAMINATION: VITAL SIGNS: Temperature is around 100 degrees Fahrenheit, heart rate is 110-120 and BP is 160/68, respirations anywhere from 20-24. NECK: Veins not visualized. CHEST: Shows occasional rhonchi with diminished air entry. HEART: Regular. ABDOMEN: Soft, nontender. LABORATORY DATA: White count is 14.5. Electrolytes shows sodium 156, slightly better and glucose is 126. ASSESSMENT: The patient clinically may be slightly better and then other day. PLANS AND SUGGESTIONS: Discussed with the nursing staff. Continue current treatment. Consideration for NG tube feeding is advised and follow up repeat chest x-ray and blood gases. [facility]# [id number]
[2018-02-25] MEDS: DEXT 10% IV SCH (17:56)
[2018-02-25] MEDS: AMINO ACIDS IV SCH (17:56)
[2018-02-25] MEDS: MULTIVITAMIN IV SCH (17:56)
--- NOTE | 2018-02-25 19:00 | Consultation ---
DATE OF CONSULTATION: 02/25/2018 REQUESTING PHYSICIAN: Dr. Arroyo. REASON FOR CONSULTATION: Severe fecal impaction. Thank you for asking me to see this patient in consultation. HISTORY OF PRESENT ILLNESS: This is a 37-year-old male with history of cerebral palsy who presented to the hospital with shortness of breath, respiratory failure, sepsis and pneumonia. The patient presented very agitated and disoriented. He has been subsequently transferred to the Intensive Care Unit. The patient has been having increased diarrhea per nursing report. He has been on lactulose; however, has not been given any enemas. He had an x-ray, which showed severe fecal impaction. PAST MEDICAL HISTORY: Developmental delay and cerebral palsy. MEDICATIONS: Have been reviewed. SOCIAL HISTORY: No tobacco, alcohol or drugs. FAMILY HISTORY: Noncontributory for GI disease. REVIEW OF SYSTEMS: Unable to obtain given the patient's current state. PHYSICAL EXAMINATION: VITAL SIGNS: Respiratory rate of 40-50, currently on BiPAP and satting 99%. GENERAL: He looks to be in acute distress, using accessory respiratory muscles. HEENT: Normocephalic and atraumatic. PERRL positive. LUNGS: Rhonchorous bilaterally. ABDOMEN: Soft, nontender, bowel sounds are positive. EXTREMITIES: Showed no lower extremity edema. PSYCHOLOGICAL: Could not assess. NEUROLOGIC: Could not assess. LABORATORY DATA: White count of 14,000 and hemoglobin of 14.5. Sodium 156, chloride of 119, total bilirubin of 1.1, AST 157 and ALT of 94. IMAGING: KUB personally reviewed, showed large amount of distal fecal impaction with nonspecific bowel gas pattern above this area. Chest x-ray did not show any acute pulmonary infiltrate. ASSESSMENT AND PLAN: This is a 37-year-old male with developmental delay and cerebral palsy who presents with respiratory distress and fecal impaction. 1. Severe fecal impaction. 2. Consider overflow diarrhea. 3. Respiratory failure. 4. History of cerebral palsy. We will try to disimpact the patient with enemas, one tonight and one in the morning. PLAN: Continue the patient on MiraLax daily and switch from lactulose as this causes more bowel gas and discomfort. We will also add mineral oil to his oral regimen as well. The patient looks critically ill. We will continue other management per primary team and we will assist alongside with you. Thank you for this consultation. JOB# [id number]
--- NOTE | 2018-02-25 19:49 | Progress Notes ---
DATE: 02/25/2018 LOCATION: [facility] ICU bed #7. SUBJECTIVE: The patient is planned for TPN. The patient is receiving water in NG tube and D5W at 150 mL. Urine output is improving. No vomiting or diarrhea. The patient's tube feeding has been decreased to 20 mL due to intolerance. OBJECTIVE: VITAL SIGNS: Heart rate 106, blood pressure 116/68, respiration rate 24, yesterday's intake 3150, output not documented. HEART: Regular. LUNGS: Rhonchi are decreasing. ABDOMEN: Soft, not distended. EXTREMITIES: No edema. LABORATORY DATA: Hemoglobin decreased from 16.1-14.5. Sodium improved from 161-156. Potassium normal from 3.3-3.5. BUN and creatinine normal. LFTs elevated. ASSESSMENT: 1. Acute kidney injury, improving. 2. Hypernatremia, improving. 3. Water deficit. 4. Leukocytosis. 5. Hypokalemia. PLAN: 1. Decrease water to 150 mL q. 6 hours in NG tube. 2. Decrease IV to half D5W to 80 mL per hour. BMP in the morning. Start TPN. Once TPN is started, we will discontinue IV. Discussed with the patient's family member at bedside and nursing staff. [facility]# [id number]
[2018-02-26] MEDS: INSULIN ASPART SLIDING SCALE 100 UNITS/ML UNIT SUBQ SCH ×4 (00:19→18:41)
[2018-02-26 04:32] LABS: % EOSINOPHILS 4.9 % (0.0-5.0); % LYMPHOCYTES 10.9 % (20.0-50.0); % MONOCYTES 6.5 % (2.0-10.0); % NEUTROPHILS 77.7 % (40.0-80.0); EOSINOPHILE ABSOLUTE 0.7 Th/cmm (0.1-0.4); HEMATOCRIT 44.3 % (41.0-60); HEMOGLOBIN 14.7 gm/dL (12-16); LYMPHOCYTE ABSOLUTE 1.5 Th/cmm (1.5-3.0); MEAN CELL VOLUME 87.7 fl (80-99); MEAN CORPUSCULAR HEMOGLOBIN 29.1 pg (26.0-30.0); MEAN CORPUSCULAR HGB CONC 33.2 pg (28.0-36.0); MEAN PLATELET VOLUME 7.5 fl; MONOCYTE ABSOLUTE 0.9 Th/cmm (0.3-1.0); NEUTROPHILE ABSOLUTE 11.1 Th/cmm (1.8-8.0); PLATELET COUNT 241 Th/cmm (150-400); RED BLOOD COUNT 5.05 Mil/cmm (4.30-5.70); RED CELL DISTRIBUTION WIDTH 12.4 % (11.5-20.0); WHITE BLOOD COUNT 14.2 Th/cmm (4.8-10.8)
[2018-02-26] MEDS: Morphine Sulfate 2 mg/mL 1mL Syr IVP PRN ×3 (04:46→21:25)
[2018-02-26 06:21] LABS: ALB/GLOB RATIO 1.4 (1.0-1.8); ALBUMIN 3.6 gm/dL (4.2-5.5); ALKALINE PHOSPHATASE 68 U/L (34-104); ANION GAP 13.8 (7.0-16.0); BUN - UREA NITROGEN 26 mg/dL (7-25); CALCIUM SERUM 9.1 mg/dL (8.6-10.3); CARBON DIOXIDE 27.9 mEq/L (21.0-31.0); CHLORIDE 116 mEq/L (98-107); CREATININE - SERUM 0.9 mg/dL (0.7-1.3); GFR AFRICAN-AMERICAN > 60.0 ml/min (>90); GFR NON AFRICAN-AMERICAN > 60.0 ml/min; GLUCOSE 131 mg/dL (70-105); MAGNESIUM 2.5 mg/dL (1.9-2.7); PHOSPHOROUS 2.8 mg/dL (2.5-5.0); POTASSIUM SERUM 3.7 mEq/L (3.5-5.1); SGOT 133 U/L (13-39); SGPT/ALT 96 U/L (7-52); SODIUM SERUM 154 mEq/L (136-145); TOTAL PROTEIN,SERUM 6.2 gm/dL (6.0-8.3)
[2018-02-26] MEDS: Albuterol/Ipratropium Neb 3 ML AERS HHN SCH ×4 (06:59→19:37)
[2018-02-26] MEDS: Budesonide 0.5 Mg/2 mL Ud HHN SCH ×2 (06:59→19:37)
[2018-02-26 09:59] LABS: pH 7.49 (7.35-7.45)
[2018-02-26] MEDS: Menthol/Zinc Oxide Oint 113gm Tube TP SCH (10:11)
--- NOTE | 2018-02-26 10:18 | Diagnostic Imaging Report ---
CHEST X-RAY: 2 views INDICATION: Shortness of breath COMPARISON: 02/25/2017 FINDINGS: NG tube is visualized with tip in the stomach. Increased bibasilar lung markings are noted. There is mild elevation of right hemidiaphragm. Heart size is borderline prominent. IMPRESSION: Increased bibasilar lung markings which may be due to atelectasis versus infiltrates. NG tube in stomach.
[2018-02-26] MEDS: DEXT 10% IV SCH (11:07)
[2018-02-26] MEDS: MULTIVITAMIN IV SCH (11:07)
[2018-02-26] MEDS: AMINO ACIDS IV SCH (11:07)
[2018-02-26] MEDS: Lactulose 10 Gm/15 mL 30mL UDC PO SCH (11:10)
--- NOTE | 2018-02-26 13:51 | Infectious Disease Prog Note ---
Infectious Disease Subjective - Review of Systems Service Date: 02/26/18 Subjective: There is no new change. Clinically better, on bipap. Still remains febrile. Infectious Disease Objective - Results Result Diagrams: 02/26/18 04:25 02/26/18 04:25 Recent Labs: Laboratory Last Values WBC 14.2 Th/cmm (4.8-10.8) H 02/26/18 04:25 Corrected WBC (auto) 14.5 Th/cmm 02/25/18 03:50 RBC 5.05 Mil/cmm (4.30-5.70) 02/26/18 04:25 Hgb 14.7 gm/dL (12-16) 02/26/18 04:25 Hct 44.3 % (41.0-60) 02/26/18 04:25 MCV 87.7 fl (80-99) 02/26/18 04:25 MCH 29.1 pg (26.0-30.0) 02/26/18 04:25 MCHC Differential 33.2 pg (28.0-36.0) 02/26/18 04:25 RDW 12.4 % (11.5-20.0) 02/26/18 04:25 Plt Count 241 Th/cmm (150-400) 02/26/18 04:25 MPV 7.5 fl 02/26/18 04:25 Add Manual Diff YES 02/23/18 07:17 Neutrophils % 77.7 % (40.0-80.0) 02/26/18 04:25 Band Neutrophils % 1 % (0-10) 02/23/18 07:17 Lymphocytes % 10.9 % (20.0-50.0) L 02/26/18 04:25 Monocytes % 6.5 % (2.0-10.0) 02/26/18 04:25 Eosinophils % 4.9 % (0.0-5.0) 02/26/18 04:25 Basophils % 0.0 % (0.0-2.0) 02/26/18 04:25 Neutrophils (Manual) 81 % (40-80) H 02/23/18 07:17 Lymphocytes 8 % (20-50) L 02/23/18 07:17 Monocytes 9 % (2-10) 02/23/18 07:17 Eosinophils 1 % (0-5) 02/22/18 13:50 Basophils 1 % (0-3) 02/23/18 07:17 Platelet Estimate ADEQUATE (NORMAL) 02/23/18 07:17 PT 12.1 SECONDS (9.5-11.5) H 02/20/18 17:21 INR 1.17 (0.5-1.4) 02/20/18 17:21 PTT (Actin FS) 26.2 SECONDS (26.0-38.0) 02/20/18 17:21 Specimen Source Arterial 02/26/18 09:50 Sample Site RB 02/26/18 09:50 pH 7.49 (7.35-7.45) H 02/26/18 09:50 pCO2 37.0 mmHg (35.0-45.0) 02/26/18 09:50 pO2 77.0 mmHg (80.0-100.0) L 02/26/18 09:50 HCO3 28.6 mEq/L (20.0-26.0) H 02/26/18 09:50 Base Excess 4.7 mEq/L (-3.0-3.0) H 02/26/18 09:50 O2 Saturation 96.0 % (92.0-100.0) 02/26/18 09:50 Ramiro Test NA 02/26/18 09:50 Vent Rate 12 02/26/18 09:50 Inspired O2 40 02/26/18 09:50 Tidal Volume 300 02/26/18 09:50 PEEP NA 02/26/18 09:50 Pressure (ins/psv/peep) NA 02/26/18 09:50 Critical Value E.MALDONADO 02/26/18 09:50 Sodium 154 mEq/L (136-145) H 02/26/18 04:25 Potassium 3.7 mEq/L (3.5-5.1) 02/26/18 04:25 Chloride 116 mEq/L (98-107) H 02/26/18 04:25 Carbon Dioxide 27.9 mEq/L (21.0-31.0) 02/26/18 04:25 Anion Gap 13.8 (7.0-16.0) 02/26/18 04:25 BUN 26 mg/dL (7-25) H 02/26/18 04:25 Creatinine 0.9 mg/dL (0.7-1.3) 02/26/18 04:25 Est GFR ( Amer) > 60.0 ml/min (>90) 02/26/18 04:25 Est GFR (Non-Af Amer) > 60.0 ml/min 02/26/18 04:25 BUN/Creatinine Ratio 28.9 02/26/18 04:25 Glucose 131 mg/dL (70-105) H 02/26/18 04:25 POC Glucose 112 MG/DL (70 - 105) H 02/26/18 12:22 Whole Bld Lactic Acid 1.40 mmol/L (0.60-1.99) 02/22/18 13:50 Calcium 9.1 mg/dL (8.6-10.3) 02/26/18 04:25 Phosphorus 2.8 mg/dL (2.5-5.0) 02/26/18 04:25 Magnesium 2.5 mg/dL (1.9-2.7) 02/26/18 04:25 Total Bilirubin 1.0 mg/dL (0.3-1.0) 02/26/18 04:25 Direct Bilirubin 0.24 mg/dL (0.0-0.2) H 02/25/18 03:50 AST 133 U/L (13-39) H 02/26/18 04:25 ALT 96 U/L (7-52) H 02/26/18 04:25 Alkaline Phosphatase 68 U/L (34-104) 02/26/18 04:25 Total Protein 6.2 gm/dL (6.0-8.3) 02/26/18 04:25 Albumin 3.6 gm/dL (4.2-5.5) L 02/26/18 04:25 Globulin 2.6 gm/dL 02/26/18 04:25 Albumin/Globulin Ratio 1.4 (1.0-1.8) 02/26/18 04:25 Prealbumin 8 mg/dL (14-35) L 02/25/18 03:50 Triglycerides 130 mg/dL (<150) 02/25/18 03:50 Cholesterol 158 mg/dL (<200) 02/25/18 03:50 TSH 0.96 uIU/ml (0.34-5.60) 02/20/18 17:21 Urine Source CLEAN CATCH 02/20/18 18:48 Urine Color YELLOW 12/22/18 18:48 Urine Clarity CLEAR (CLEAR) 02/20/18 18:48 Urine pH 5.0 (4.6 - 8.0) 02/20/18 18:48 Ur Specific [place] > 1.030 (1.005-1.030) H 02/20/18 18:48 Urine Protein NEGATIVE mg/dL (NEGATIVE) 02/20/18 18:48 Urine Glucose (UA) NEGATIVE mg/dL (NEGATIVE) 02/20/18 18:48 Urine Ketones 40 mg/dL (NEGATIVE) H 02/20/18 18:48 Urine Blood NEGATIVE (NEGATIVE) 02/20/18 18:48 Urine Nitrate NEGATIVE (NEGATIVE) 02/20/18 18:48 Urine Bilirubin SMALL (NEGATIVE) H 02/20/18 18:48 Urine Urobilinogen 0.2 E.U./dL (0.2 - 1.0) 02/20/18 18:48 Ur Leukocyte Esterase NEGATIVE (NEGATIVE) 02/20/18 18:48 Urine RBC 0-2 /hpf (0-5) H 02/20/18 18:48 Urine WBC 0-2 /hpf (0-5) 02/20/18 18:48 Ur Epithelial Cells FEW /lpf (FEW) 02/20/18 18:48 Urine Bacteria FEW /hpf (NONE SEEN) 02/20/18 18:48 Urine Mucus FEW /lpf (FEW) 02/20/18 18:48 Vancomycin Trough 11.6 ug/mL (5-10) H 02/24/18 19:47 - Physical Exam Vitals and I&O: Vital Signs Temp 100.2 F 02/26/18 11:00 Pulse 88 02/26/18 11:00 Resp 45 02/26/18 13:05 BP 133/84 02/26/18 11:00 Pulse Ox 95 02/26/18 13:05 Intake & Output 02/25/18 02/26/18 02/26/18 18:59 06:59 18:59 Intake Total 2950 950 Balance 2950 950 Weight (lbs) 72.121 kg 57.153 kg Intake: Intake, IV Amount 1350 550 Dextrose 5% 1,000 ml @ 1000 150 mls/hr IV .[id number] [facility] Rx#:[id number] Levofloxacin 500mg/100mL 100 500 mg In 100 ml @ 100 mls/hr IV Q24HR [facility] Rx#: [id number] Piperacillin Sodium/ 100 200 Tazobact 4.5 gm In Sodium Chloride 0.9% 100 ml @ 100 mls/hr IV Q8HR [facility] Rx #:[id number] Vancomycin HCl 1 gm In 250 Sodium Chloride 0.9% 250 ml @ 165 mls/hr IV Q12H [facility] Rx#:[id number] Vancomycin HCl 1.25 gm In 250 Sodium Chloride 0.9% 250 ml @ 165 mls/hr IV Q12H [facility] Rx#:[id number] Tube Feeding 1250 Other 350 400 Other: # Voids 4 3 # Bowel Movements 2 2 Stool Characteristics Soft Soft Soft Brown Brown Brown Weight Source Bedscale Estimated Active Medications: Current Medications Acetaminophen (Tylenol 650mg/20.3ml Suspension) 650 mg NG Q4H PRN PRN Reason: Fever > 101 Stop: 04/26/18 18:49 Last Admin: 02/26/18 04:46 Dose: 650 mg Albuterol Sulfate (Albuterol 2.5mg/3ml Neb Ud) 2.5 mg HHN Q4H PRN PRN Reason: Shortness of Breath or Wheeze Stop: 04/23/18 13:10 Last Admin: 02/22/18 13:27 Dose: 2.5 mg Albuterol/Ipratropium (Duoneb Neb) 3 ml HHN [id number] [facility] Stop: 04/24/18 06:59 Last Admin: 02/26/18 10:58 Dose: 3 ml Budesonide (Pulmicort) 0.5 mg HHN BIDRT [facility] Stop: 04/24/18 06:59 Last Admin: 02/26/18 06:59 Dose: 0.5 mg Calamine/Phenol (Calmoseptine) 1 appl TP DAILY [facility] Stop: 04/25/18 11:59 Last Admin: 02/26/18 10:11 Dose: 1 appl Ergocalciferol (Vitamin D2) 50,000 iu PO QSAT [facility] Stop: 04/28/18 08:59 Haloperidol Lactate (Haldol) 3 mg IM Q8H PRN PRN Reason: Agitation Stop: 04/24/18 06:47 Last Admin: 02/24/18 10:55 Dose: 3 mg Piperacillin Sod/Tazobactam (Sod 4.5 gm/ Sodium Chloride) 100 mls @ 100 mls/hr IV Q8HR [facility] Stop: 04/23/18 12:59 Last Admin: 02/26/18 12:35 Dose: 100 mls/hr Levofloxacin (Levaquin Pb) 500 mg in 100 mls @ 100 mls/hr IV Q24HR [facility] Stop: 04/23/18 15:59 Last Infusion: 02/25/18 19:40 Dose: Infused Multivitamins/Minerals 10 ml/ (Amino Acids) 1,010 mls @ 70 mls/hr IV .[id number] [facility] Stop: 02/26/18 16:00 Last Admin: 02/26/18 11:07 Dose: Not Given Vancomycin HCl 1.25 gm/ Sodium (Chloride) 250 mls @ 165 mls/hr IV Q12H [facility] Stop: 04/26/18 20:59 Last Admin: 02/26/18 10:10 Dose: 165 mls/hr Dextrose (D5w) 1,000 mls @ 80 mls/hr IV .[id number] [facility] Stop: 02/26/18 16:00 Last Admin: 02/25/18 20:54 Dose: 80 mls/hr Multivitamins/Minerals 10 ml/Dextrose/ Amino Acids/Electrolytes/ Sterile Water 2,910 mls @ 120 mls/hr IV .Q24H [facility] Stop: 04/27/18 15:59 Insulin Aspart (Novolog Insulin Sliding Scale) 0 units SUBQ Q6H [facility]; Protocol Stop: 04/26/18 11:59 Last Admin: 02/26/18 06:21 Dose: Not Given Lactulose (Cephulac) 30 gm PO TID [facility] Stop: 04/23/18 20:59 Last Admin: 02/26/18 11:10 Dose: Not Given Lorazepam (Ativan) 1 mg IVP Q6HR PRN; Protocol PRN Reason: Agitation Stop: 04/25/18 09:06 Last Admin: 02/26/18 08:47 Dose: 1 mg Magnesium Hydroxide (Milk Of Magnesia) 30 ml PO HS PRN PRN Reason: Constipation Stop: 04/23/18 19:01 Miscellaneous (Vancomycin Iv Per Pharmacy) 1 ea [facility] PRN PRN PRN Reason: PROTOCOL Stop: 04/23/18 13:20 Miscellaneous (Zosyn Iv Per Pharmacy) 1 [facility] PRN PRN PRN Reason: PROTOCOL Stop: 04/23/18 19:06 Miscellaneous (Ppn Per Pharmacy) 1 [facility] PRN PRN PRN Reason: PROTOCOL Stop: 04/25/18 12:21 Morphine Sulfate (Morphine) 1 mg IVP Q4H PRN PRN Reason: Severe Pain Stop: 04/23/18 20:17 Last Admin: 02/26/18 12:35 Dose: 1 mg General: no acute distress, well developed, well nourished HEENT: atraumatic, normocephalic, PERRLA, EOMI Neck: supple, no thyromegaly Cardiovascular: S1S2, regular Lungs: clear to percussion, crackles Abdomen: soft, no tender, no distended, no mass, no hepatomegaly Extremities: no cyanosis, no clubbing, no edema Neurological: other (lethargic) Infectious Disease Assmt/Plan - Assessment Assessment: 1. Sepsis. 2. UTI. 3. Renal failure, improved.\ 4. Stool impaction. 5. Mental retardation. 6. Respiratory failure. 7. Pneumionia. - Plan Plan: Continue the same treatment. Continue vanco IV and change zosyn to meropenem, as patient has failed current therapy to resolve his fever. KUB. CXR. Nutritional Asmnt/Malnutr-PDOC - Dietary Evaluation Malnutrition Findings (Please click <Entered> for more info): Nutritional Asmnt/Malnutrition Start: 02/24/18 14: 50 Text: Status: Complete Freq: Protocol: Document 02/24/18 14:50 [email or web address] (Rec: 02/24/18 15:37 DEANGELO [email or web address]) Nutritional Asmnt/Malnutrition Patient General Information Nutritional Screening Moderate Risk Diagnosis fecal impaction, psychosis Pertinent Medical Hx/Surgical Hx PEG, Gtobue, bipolar, demntia, possible cerebral paysy, ventilated, multiple neurilogical and physical development Subjective Information Pt seen resting in bed at time of visit, on bipap. VINCENT Esparza stated pt still in respiratory stress, on bipap most of the day, has aspiration pneumonia, so far no plan for tube feeding. Pt had NGT inserted noted, only ordered water flush. pt on NPO from 02/22. Current Diet Order/ Nutrition Support NPO Pertinent Medications D5w, vit D2, novolog, levaquin , piperacillin, vancomycin Pertinent Labs 02/24 Na 161, K 3.3, cl 124, BUN 27, Cr 1.4, glucose 152, Alb 3.8 02/23 na 167, K 3.8, Cl 131, BUN 38, Cr 1.5, glucose 163 Nutritional Hx/Data Height 1.68 m Height (Calculated Centimeters) 167.6 Current Weight (lbs) 57.153 kg Weight (Calculated Kilograms) 57.2 Weight (Calculated Grams) [address]327.6 [place] Body Weight 142 Body Mass Index (BMI) 20.3 Weight Status Approriate GI Symptoms GI Symptoms None Last BM 02/24 x 4 Difficult in: None Skin Integrity/Comment: reddened to parietal, nose, upper anterior forehead Current %PO Negligible < 25% Estimated Nutritional Goals BEE in Kcals: Using Current wt Calories/Kcals/Kg 30-35 Kcals Calculated 3652-3997 Protein: Using Current wt Protein g/k.2 monitor renal labs Protein Calculated 68 Fluid: ml 1710-1994ml (1ml/kcal) Nutritional Problem 2. Problem Problem altered nutrition related labs Etiology possible renal dysfunction and electrolytes imbalance Signs/Symptoms: Na 161, K 3.3, cl 124, BUN 27, Cr 1.4 1. Problem Problem inadequate food intake Etiology aspiration risk and respiratory stress Signs/Symptoms: pt on NPO x 3 days Intervention/Recommendation Comments 1. Monitor NPO status. Recommend starting PPN for nutrition intake. VINCENT Esparza notified. 2. Monitor wt, labs and skin integrity 3. F/U as high risk in 2-3 days Expected Outcomes/Goals Expected Outcomes/Goals 1. Pt to meet at least 75% of nutritional needs with nutrition support. 2. Wt stability, skin to remain intact, labs to approach WNL.
--- NOTE | 2018-02-26 13:56 | General Progress Note ---
Subjective - Review of Systems Events since last encounter: pt. still trending high temp. tachypneic on bipap Objective - Results Result Diagrams: 02/26/18 04:25 02/26/18 04:25 Recent Labs: Laboratory Last Values WBC 14.2 Th/cmm (4.8-10.8) H 02/26/18 04:25 Corrected WBC (auto) 14.5 Th/cmm 02/25/18 03:50 RBC 5.05 Mil/cmm (4.30-5.70) 02/26/18 04:25 Hgb 14.7 gm/dL (12-16) 02/26/18 04:25 Hct 44.3 % (41.0-60) 02/26/18 04:25 MCV 87.7 fl (80-99) 02/26/18 04:25 MCH 29.1 pg (26.0-30.0) 02/26/18 04:25 MCHC Differential 33.2 pg (28.0-36.0) 02/26/18 04:25 RDW 12.4 % (11.5-20.0) 02/26/18 04:25 Plt Count 241 Th/cmm (150-400) 02/26/18 04:25 MPV 7.5 fl 02/26/18 04:25 Add Manual Diff YES 02/23/18 07:17 Neutrophils % 77.7 % (40.0-80.0) 02/26/18 04:25 Band Neutrophils % 1 % (0-10) 02/23/18 07:17 Lymphocytes % 10.9 % (20.0-50.0) L 02/26/18 04:25 Monocytes % 6.5 % (2.0-10.0) 02/26/18 04:25 Eosinophils % 4.9 % (0.0-5.0) 02/26/18 04:25 Basophils % 0.0 % (0.0-2.0) 02/26/18 04:25 Neutrophils (Manual) 81 % (40-80) H 02/23/18 07:17 Lymphocytes 8 % (20-50) L 02/23/18 07:17 Monocytes 9 % (2-10) 02/23/18 07:17 Eosinophils 1 % (0-5) 02/22/18 13:50 Basophils 1 % (0-3) 02/23/18 07:17 Platelet Estimate ADEQUATE (NORMAL) 02/23/18 07:17 PT 12.1 SECONDS (9.5-11.5) H 02/20/18 17:21 INR 1.17 (0.5-1.4) 02/20/18 17:21 PTT (Actin FS) 26.2 SECONDS (26.0-38.0) 02/20/18 17:21 Specimen Source Arterial 02/26/18 09:50 Sample Site RB 02/26/18 09:50 pH 7.49 (7.35-7.45) H 02/26/18 09:50 pCO2 37.0 mmHg (35.0-45.0) 02/26/18 09:50 pO2 77.0 mmHg (80.0-100.0) L 02/26/18 09:50 HCO3 28.6 mEq/L (20.0-26.0) H 02/26/18 09:50 Base Excess 4.7 mEq/L (-3.0-3.0) H 02/26/18 09:50 O2 Saturation 96.0 % (92.0-100.0) 02/26/18 09:50 Ramiro Test NA 02/26/18 09:50 Vent Rate 12 02/26/18 09:50 Inspired O2 40 02/26/18 09:50 Tidal Volume 300 02/26/18 09:50 PEEP NA 02/26/18 09:50 Pressure (ins/psv/peep) NA 02/26/18 09:50 Critical Value E.MALDONADO 02/26/18 09:50 Sodium 154 mEq/L (136-145) H 02/26/18 04:25 Potassium 3.7 mEq/L (3.5-5.1) 02/26/18 04:25 Chloride 116 mEq/L (98-107) H 02/26/18 04:25 Carbon Dioxide 27.9 mEq/L (21.0-31.0) 02/26/18 04:25 Anion Gap 13.8 (7.0-16.0) 02/26/18 04:25 BUN 26 mg/dL (7-25) H 02/26/18 04:25 Creatinine 0.9 mg/dL (0.7-1.3) 02/26/18 04:25 Est GFR ( Amer) > 60.0 ml/min (>90) 02/26/18 04:25 Est GFR (Non-Af Amer) > 60.0 ml/min 02/26/18 04:25 BUN/Creatinine Ratio 28.9 02/26/18 04:25 Glucose 131 mg/dL (70-105) H 02/26/18 04:25 POC Glucose 112 MG/DL (70 - 105) H 02/26/18 12:22 Whole Bld Lactic Acid 1.40 mmol/L (0.60-1.99) 02/22/18 13:50 Calcium 9.1 mg/dL (8.6-10.3) 02/26/18 04:25 Phosphorus 2.8 mg/dL (2.5-5.0) 02/26/18 04:25 Magnesium 2.5 mg/dL (1.9-2.7) 02/26/18 04:25 Total Bilirubin 1.0 mg/dL (0.3-1.0) 02/26/18 04:25 Direct Bilirubin 0.24 mg/dL (0.0-0.2) H 02/25/18 03:50 AST 133 U/L (13-39) H 02/26/18 04:25 ALT 96 U/L (7-52) H 02/26/18 04:25 Alkaline Phosphatase 68 U/L (34-104) 02/26/18 04:25 Total Protein 6.2 gm/dL (6.0-8.3) 02/26/18 04:25 Albumin 3.6 gm/dL (4.2-5.5) L 02/26/18 04:25 Globulin 2.6 gm/dL 02/26/18 04:25 Albumin/Globulin Ratio 1.4 (1.0-1.8) 02/26/18 04:25 Prealbumin 8 mg/dL (14-35) L 02/25/18 03:50 Triglycerides 130 mg/dL (<150) 02/25/18 03:50 Cholesterol 158 mg/dL (<200) 02/25/18 03:50 TSH 0.96 uIU/ml (0.34-5.60) 02/20/18 17:21 Urine Source CLEAN CATCH 02/20/18 18:48 Urine Color YELLOW 02/20/18 18:48 Urine Clarity CLEAR (CLEAR) 02/20/18 18:48 Urine pH 5.0 (4.6 - 8.0) 02/20/18 18:48 Ur Specific [place] > 1.030 (1.005-1.030) H 02/20/18 18:48 Urine Protein NEGATIVE mg/dL (NEGATIVE) 02/20/18 18:48 Urine Glucose (UA) NEGATIVE mg/dL (NEGATIVE) 02/20/18 18:48 Urine Ketones 40 mg/dL (NEGATIVE) H 02/20/18 18:48 Urine Blood NEGATIVE (NEGATIVE) 02/20/18 18:48 Urine Nitrate NEGATIVE (NEGATIVE) 02/20/18 18:48 Urine Bilirubin SMALL (NEGATIVE) H 02/20/18 18:48 Urine Urobilinogen 0.2 E.U./dL (0.2 - 1.0) 02/20/18 18:48 Ur Leukocyte Esterase NEGATIVE (NEGATIVE) 02/20/18 18:48 Urine RBC 0-2 /hpf (0-5) H 02/20/18 18:48 Urine WBC 0-2 /hpf (0-5) 02/20/18 18:48 Ur Epithelial Cells FEW /lpf (FEW) 02/20/18 18:48 Urine Bacteria FEW /hpf (NONE SEEN) 02/20/18 18:48 Urine Mucus FEW /lpf (FEW) 02/20/18 18:48 Vancomycin Trough 11.6 ug/mL (5-10) H 02/24/18 19:47 - Physical Exam Vitals and I&O: Vital Signs Temp 100.2 F 02/26/18 11:00 Pulse 88 02/26/18 11:00 Resp 45 02/26/18 13:05 BP 133/84 02/26/18 11:00 Pulse Ox 95 02/26/18 13:05 Intake & Output 02/25/18 02/26/18 02/26/18 18:59 06:59 18:59 Intake Total 2950 950 Balance 2950 950 Weight (lbs) 72.121 kg 57.153 kg Intake: Intake, IV Amount 1350 550 Dextrose 5% 1,000 ml @ 1000 150 mls/hr IV .Q6H40M [facility] Rx#:[id number] Levofloxacin 500mg/100mL 100 500 mg In 100 ml @ 100 mls/hr IV Q24HR [facility] Rx#: [id number] Piperacillin Sodium/ 100 200 Tazobact 4.5 gm In Sodium Chloride 0.9% 100 ml @ 100 mls/hr IV Q8HR [facility] Rx #:[id number] Vancomycin HCl 1 gm In 250 Sodium Chloride 0.9% 250 ml @ 165 mls/hr IV Q12H [facility] Rx#:[id number] Vancomycin HCl 1.25 gm In 250 Sodium Chloride 0.9% 250 ml @ 165 mls/hr IV Q12H [facility] Rx#:[id number] Tube Feeding 1250 Other 350 400 Other: # Voids 4 3 # Bowel Movements 2 2 Stool Characteristics Soft Soft Soft Brown Brown Brown Weight Source Bedscale Estimated Active Medications: Current Medications Acetaminophen (Tylenol 650mg/20.3ml Suspension) 650 mg NG Q4H PRN PRN Reason: Fever > 101 Stop: 04/26/18 18:49 Last Admin: 02/26/18 04:46 Dose: 650 mg Albuterol Sulfate (Albuterol 2.5mg/3ml Neb Ud) 2.5 mg HHN Q4H PRN PRN Reason: Shortness of Breath or Wheeze Stop: 04/23/18 13:10 Last Admin: 02/22/18 13:27 Dose: 2.5 mg Albuterol/Ipratropium (Duoneb Neb) 3 ml HHN [id number] [facility] Stop: 04/24/18 06:59 Last Admin: 02/26/18 10:58 Dose: 3 ml Budesonide (Pulmicort) 0.5 mg HHN BIDRT [facility] Stop: 04/24/18 06:59 Last Admin: 02/26/18 06:59 Dose: 0.5 mg Calamine/Phenol (Calmoseptine) 1 appl TP DAILY [facility] Stop: 04/25/18 11:59 Last Admin: 02/26/18 10:11 Dose: 1 appl Ergocalciferol (Vitamin D2) 50,000 iu PO QSAT [facility] Stop: 04/28/18 08:59 Haloperidol Lactate (Haldol) 3 mg IM Q8H PRN PRN Reason: Agitation Stop: 04/24/18 06:47 Last Admin: 02/24/18 10:55 Dose: 3 mg Multivitamins/Minerals 10 ml/ (Amino Acids) 1,010 mls @ 70 mls/hr IV .[id number] [facility] Stop: 02/26/18 16:00 Last Admin: 02/26/18 11:07 Dose: Not Given Vancomycin HCl 1.25 gm/ Sodium (Chloride) 250 mls @ 165 mls/hr IV Q12H [facility] Stop: 04/26/18 20:59 Last Admin: 02/26/18 10:10 Dose: 165 mls/hr Dextrose (D5w) 1,000 mls @ 80 mls/hr IV .[id number] [facility] Stop: 02/26/18 16:00 Last Admin: 02/25/18 20:54 Dose: 80 mls/hr Multivitamins/Minerals 10 ml/Dextrose/ Amino Acids/Electrolytes/ Sterile Water 2,910 mls @ 120 mls/hr IV .Q24H [facility] Stop: 04/27/18 15:59 Meropenem 1 gm/ Sodium (Chloride) 100 mls @ 100 mls/hr IV Q8H [facility] Stop: 04/27/18 13:52 Insulin Aspart (Novolog Insulin Sliding Scale) 0 units SUBQ Q6H [facility]; Protocol Stop: 04/26/18 11:59 Last Admin: 02/26/18 12:00 Dose: Not Given Lactulose (Cephulac) 30 gm PO TID [facility] Stop: 04/23/18 20:59 Last Admin: 02/26/18 11:10 Dose: Not Given Lorazepam (Ativan) 1 mg IVP Q6HR PRN; Protocol PRN Reason: Agitation Stop: 04/25/18 09:06 Last Admin: 02/26/18 08:47 Dose: 1 mg Magnesium Hydroxide (Milk Of Magnesia) 30 ml PO HS PRN PRN Reason: Constipation Stop: 04/23/18 19:01 Miscellaneous (Vancomycin Iv Per Pharmacy) 1 ea MC PRN PRN PRN Reason: PROTOCOL Stop: 04/23/18 13:20 Miscellaneous (Zosyn Iv Per Pharmacy) 1 ea MC PRN PRN PRN Reason: PROTOCOL Stop: 04/23/18 19:06 Miscellaneous (Ppn Per Pharmacy) 1 ea MC PRN PRN PRN Reason: PROTOCOL Stop: 04/25/18 12:21 Morphine Sulfate (Morphine) 1 mg IVP Q4H PRN PRN Reason: Severe Pain Stop: 04/23/18 20:17 Last Admin: 02/26/18 12:35 Dose: 1 mg General: Alert, No acute distress, Moderate distress HEENT: Atraumatic, Mucous membr. moist/pink, Other (on bipap) Neck: Supple Cardiovascular: Regular rate Lungs: Other (bilateral crackles) Abdomen: Bowel sounds Extremities: Pulses Psych/Mental Status: Other (confused) Assessment/Plan - Assessment Assessment: sepsis respiratory distress, r/o pna acute renal failure, improving hypernatremia leukocytosis UTI Fecal impaction physically & mentally delayed - Plan Plan: cpm Nutritional Asmnt/Malnutr-PDOC - Dietary Evaluation Malnutrition Findings (Please click <Entered> for more info): Nutritional Asmnt/Malnutrition Start: 02/24/18 14: 50 Text: Status: Complete Freq: Protocol: Document 02/24/18 14:50 LCHENG (Rec: 02/24/18 15:37 [email or web address] [id number]) Nutritional Asmnt/Malnutrition Patient General Information Nutritional Screening Moderate Risk Diagnosis fecal impaction, psychosis Pertinent Medical Hx/Surgical Hx PEG, Gtobue, bipolar, demntia, possible cerebral paysy, ventilated, multiple neurilogical and physical development Subjective Information Pt seen resting in bed at time of visit, on bipap. VINCENT Esparza stated pt still in respiratory stress, on bipap most of the day, has aspiration pneumonia, so far no plan for tube feeding. Pt had NGT inserted noted, only ordered water flush. pt on NPO from 02/22. Current Diet Order/ Nutrition Support NPO Pertinent Medications D5w, vit D2, novolog, levaquin , piperacillin, vancomycin Pertinent Labs 02/24 Na 161, K 3.3, cl 124, BUN 27, Cr 1.4, glucose 152, Alb 3.8 02/23 na 167, K 3.8, Cl 131, BUN 38, Cr 1.5, glucose 163 Nutritional Hx/Data Height 1.68 m Height (Calculated Centimeters) 167.6 Current Weight (lbs) 57.153 kg Weight (Calculated Kilograms) 57.2 Weight (Calculated Grams) 63987.6 [place] Body Weight 142 Body Mass Index (BMI) 20.3 Weight Status Approriate GI Symptoms GI Symptoms None Last BM 02/24 x 4 Difficult in: None Skin Integrity/Comment: reddened to parietal, nose, upper anterior forehead Current %PO Negligible < 25% Estimated Nutritional Goals BEE in Kcals: Using Current wt Calories/Kcals/Kg 30-35 Kcals Calculated 4420-9316 Protein: Using Current wt Protein g/k.2 monitor renal labs Protein Calculated 68 Fluid: ml 0-1994ml (1ml/kcal) Nutritional Problem 2. Problem Problem altered nutrition related labs Etiology possible renal dysfunction and electrolytes imbalance Signs/Symptoms: Na 161, K 3.3, cl 124, BUN 27, Cr 1.4 1. Problem Problem inadequate food intake Etiology aspiration risk and respiratory stress Signs/Symptoms: pt on NPO x 3 days Intervention/Recommendation Comments 1. Monitor NPO status. Recommend starting PPN for nutrition intake. RN Vilma notified. 2. Monitor wt, labs and skin integrity 3. F/U as high risk in 2-3 days Expected Outcomes/Goals Expected Outcomes/Goals 1. Pt to meet at least 75% of nutritional needs with nutrition support. 2. Wt stability, skin to remain intact, labs to approach WNL.
--- NOTE | 2018-02-26 15:44 | GI Progress Note ---
Subjective - Review of Systems Service Date: 02/26/18 Events since last encounter: No events, had a large bowel movement today per nursing Objective - Results Result Diagrams: 02/26/18 04:25 02/26/18 04:25 Recent Labs: Laboratory Last Values WBC 14.2 Th/cmm (4.8-10.8) H 02/26/18 04:25 Corrected WBC (auto) 14.5 Th/cmm 02/25/18 03:50 RBC 5.05 Mil/cmm (4.30-5.70) 02/26/18 04:25 Hgb 14.7 gm/dL (12-16) 02/26/18 04:25 Hct 44.3 % (41.0-60) 02/26/18 04:25 MCV 87.7 fl (80-99) 02/26/18 04:25 MCH 29.1 pg (26.0-30.0) 02/26/18 04:25 MCHC Differential 33.2 pg (28.0-36.0) 02/26/18 04:25 RDW 12.4 % (11.5-20.0) 02/26/18 04:25 Plt Count 241 Th/cmm (150-400) 02/26/18 04:25 MPV 7.5 fl 02/26/18 04:25 Add Manual Diff YES 02/23/18 07:17 Neutrophils % 77.7 % (40.0-80.0) 02/26/18 04:25 Band Neutrophils % 1 % (0-10) 02/23/18 07:17 Lymphocytes % 10.9 % (20.0-50.0) L 02/26/18 04:25 Monocytes % 6.5 % (2.0-10.0) 02/26/18 04:25 Eosinophils % 4.9 % (0.0-5.0) 02/26/18 04:25 Basophils % 0.0 % (0.0-2.0) 02/26/18 04:25 Neutrophils (Manual) 81 % (40-80) H 02/23/18 07:17 Lymphocytes 8 % (20-50) L 02/23/18 07:17 Monocytes 9 % (2-10) 02/23/18 07:17 Eosinophils 1 % (0-5) 02/22/18 13:50 Basophils 1 % (0-3) 02/23/18 07:17 Platelet Estimate ADEQUATE (NORMAL) 02/23/18 07:17 PT 12.1 SECONDS (9.5-11.5) H 02/20/18 17:21 INR 1.17 (0.5-1.4) 02/20/18 17:21 PTT (Actin FS) 26.2 SECONDS (26.0-38.0) 02/20/18 17:21 Specimen Source Arterial 02/26/18 09:50 Sample Site RB 02/26/18 09:50 pH 7.49 (7.35-7.45) H 02/26/18 09:50 pCO2 37.0 mmHg (35.0-45.0) 02/26/18 09:50 pO2 77.0 mmHg (80.0-100.0) L 02/26/18 09:50 HCO3 28.6 mEq/L (20.0-26.0) H 02/26/18 09:50 Base Excess 4.7 mEq/L (-3.0-3.0) H 02/26/18 09:50 O2 Saturation 96.0 % (92.0-100.0) 02/26/18 09:50 Ramiro Test NA 02/26/18 09:50 Vent Rate 12 02/26/18 09:50 Inspired O2 40 02/26/18 09:50 Tidal Volume 300 02/26/18 09:50 PEEP NA 02/26/18 09:50 Pressure (ins/psv/peep) NA 02/26/18 09:50 Critical Value E.MALDONADO 02/26/18 09:50 Sodium 154 mEq/L (136-145) H 02/26/18 04:25 Potassium 3.7 mEq/L (3.5-5.1) 02/26/18 04:25 Chloride 116 mEq/L (98-107) H 02/26/18 04:25 Carbon Dioxide 27.9 mEq/L (21.0-31.0) 02/26/18 04:25 Anion Gap 13.8 (7.0-16.0) 02/26/18 04:25 BUN 26 mg/dL (7-25) H 02/26/18 04:25 Creatinine 0.9 mg/dL (0.7-1.3) 02/26/18 04:25 Est GFR ( Amer) > 60.0 ml/min (>90) 02/26/18 04:25 Est GFR (Non-Af Amer) > 60.0 ml/min 02/26/18 04:25 BUN/Creatinine Ratio 28.9 02/26/18 04:25 Glucose 131 mg/dL (70-105) H 02/26/18 04:25 POC Glucose 112 MG/DL (70 - 105) H 02/26/18 12:22 Whole Bld Lactic Acid 1.40 mmol/L (0.60-1.99) 02/22/18 13:50 Calcium 9.1 mg/dL (8.6-10.3) 02/26/18 04:25 Phosphorus 2.8 mg/dL (2.5-5.0) 02/26/18 04:25 Magnesium 2.5 mg/dL (1.9-2.7) 02/26/18 04:25 Total Bilirubin 1.0 mg/dL (0.3-1.0) 02/26/18 04:25 Direct Bilirubin 0.24 mg/dL (0.0-0.2) H 02/25/18 03:50 AST 133 U/L (13-39) H 02/26/18 04:25 ALT 96 U/L (7-52) H 02/26/18 04:25 Alkaline Phosphatase 68 U/L (34-104) 02/26/18 04:25 Total Protein 6.2 gm/dL (6.0-8.3) 02/26/18 04:25 Albumin 3.6 gm/dL (4.2-5.5) L 02/26/18 04:25 Globulin 2.6 gm/dL 02/26/18 04:25 Albumin/Globulin Ratio 1.4 (1.0-1.8) 02/26/18 04:25 Prealbumin 8 mg/dL (14-35) L 02/25/18 03:50 Triglycerides 130 mg/dL (<150) 02/25/18 03:50 Cholesterol 158 mg/dL (<200) 02/25/18 03:50 TSH 0.96 uIU/ml (0.34-5.60) 02/20/18 17:21 Urine Source CLEAN CATCH 02/20/18 18:48 Urine Color YELLOW 02/20/18 18:48 Urine Clarity CLEAR (CLEAR) 02/20/18 18:48 Urine pH 5.0 (4.6 - 8.0) 02/20/18 18:48 Ur Specific [place] > 1.030 (1.005-1.030) H 02/20/18 18:48 Urine Protein NEGATIVE mg/dL (NEGATIVE) 02/20/18 18:48 Urine Glucose (UA) NEGATIVE mg/dL (NEGATIVE) 02/20/18 18:48 Urine Ketones 40 mg/dL (NEGATIVE) H 02/20/18 18:48 Urine Blood NEGATIVE (NEGATIVE) 02/20/18 18:48 Urine Nitrate NEGATIVE (NEGATIVE) 02/20/18 18:48 Urine Bilirubin SMALL (NEGATIVE) H 02/20/18 18:48 Urine Urobilinogen 0.2 E.U./dL (0.2 - 1.0) 02/20/18 18:48 Ur Leukocyte Esterase NEGATIVE (NEGATIVE) 02/20/18 18:48 Urine RBC 0-2 /hpf (0-5) H 02/20/18 18:48 Urine WBC 0-2 /hpf (0-5) 02/20/18 18:48 Ur Epithelial Cells FEW /lpf (FEW) 02/20/18 18:48 Urine Bacteria FEW /hpf (NONE SEEN) 02/20/18 18:48 Urine Mucus FEW /lpf (FEW) 02/20/18 18:48 Vancomycin Trough 11.6 ug/mL (5-10) H 02/24/18 19:47 - Physical Exam Vitals and I&O: Vital Signs Temp 100.2 F 02/26/18 11:00 Pulse 88 02/26/18 11:00 Resp 45 02/26/18 15:14 BP 133/84 02/26/18 11:00 Pulse Ox 96 02/26/18 15:14 Intake & Output 02/25/18 02/26/18 02/26/18 18:59 06:59 18:59 Intake Total 2950 950 Balance 2950 950 Weight (lbs) 72.121 kg 57.153 kg Intake: Intake, IV Amount 1350 550 Dextrose 5% 1,000 ml @ 1000 150 mls/hr IV .Q6H40M [facility] Rx#:[id number] Levofloxacin 500mg/100mL 100 500 mg In 100 ml @ 100 mls/hr IV Q24HR [facility] Rx#: [id number] Piperacillin Sodium/ 100 200 Tazobact 4.5 gm In Sodium Chloride 0.9% 100 ml @ 100 mls/hr IV Q8HR [facility] Rx #:[id number] Vancomycin HCl 1 gm In 250 Sodium Chloride 0.9% 250 ml @ 165 mls/hr IV Q12H [facility] Rx#:[id number] Vancomycin HCl 1.25 gm In 250 Sodium Chloride 0.9% 250 ml @ 165 mls/hr IV Q12H [facility] Rx#:[id number] Tube Feeding 1250 Other 350 400 Other: # Voids 4 3 # Bowel Movements 2 2 Stool Characteristics Soft Soft Soft Brown Brown Brown Weight Source Bedscale Estimated Active Medications: Current Medications Acetaminophen (Tylenol 650mg/20.3ml Suspension) 650 mg NG Q4H PRN PRN Reason: Fever > 101 Stop: 04/26/18 18:49 Last Admin: 02/26/18 04:46 Dose: 650 mg Albuterol Sulfate (Albuterol 2.5mg/3ml Neb Ud) 2.5 mg HHN Q4H PRN PRN Reason: Shortness of Breath or Wheeze Stop: 04/23/18 13:10 Last Admin: 02/22/18 13:27 Dose: 2.5 mg Albuterol/Ipratropium (Duoneb Neb) 3 ml HHN [id number] [facility] Stop: 04/24/18 06:59 Last Admin: 02/26/18 15:13 Dose: 3 ml Budesonide (Pulmicort) 0.5 mg HHN BIDRT [facility] Stop: 04/24/18 06:59 Last Admin: 02/26/18 06:59 Dose: 0.5 mg Calamine/Phenol (Calmoseptine) 1 appl TP DAILY [facility] Stop: 04/25/18 11:59 Last Admin: 02/26/18 10:11 Dose: 1 appl Ergocalciferol (Vitamin D2) 50,000 iu PO QSAT [facility] Stop: 04/28/18 08:59 Haloperidol Lactate (Haldol) 3 mg IM Q8H PRN PRN Reason: Agitation Stop: 04/24/18 06:47 Last Admin: 02/24/18 10:55 Dose: 3 mg Multivitamins/Minerals 10 ml/ (Amino Acids) 1,010 mls @ 70 mls/hr IV .[id number] [facility] Stop: 02/26/18 16:00 Last Admin: 02/26/18 11:07 Dose: Not Given Vancomycin HCl 1.25 gm/ Sodium (Chloride) 250 mls @ 165 mls/hr IV Q12H [facility] Stop: 04/26/18 20:59 Last Admin: 02/26/18 10:10 Dose: 165 mls/hr Dextrose (D5w) 1,000 mls @ 80 mls/hr IV .[id number] [facility] Stop: 02/26/18 16:00 Last Admin: 02/25/18 20:54 Dose: 80 mls/hr Multivitamins/Minerals 10 ml/Dextrose/ Amino Acids/Electrolytes/ Sterile Water 2,910 mls @ 120 mls/hr IV .Q24H [facility] Stop: 04/27/18 15:59 Meropenem 1 gm/ Sodium (Chloride) 100 mls @ 100 mls/hr IV Q8H [facility] Stop: 04/27/18 14:59 Insulin Aspart (Novolog Insulin Sliding Scale) 0 units SUBQ Q6H [facility]; Protocol Stop: 04/26/18 11:59 Last Admin: 02/26/18 12:00 Dose: Not Given Lorazepam (Ativan) 1 mg IVP Q6HR PRN; Protocol PRN Reason: Agitation Stop: 04/25/18 09:06 Last Admin: 02/26/18 08:47 Dose: 1 mg Magnesium Hydroxide (Milk Of Magnesia) 30 ml PO HS PRN PRN Reason: Constipation Stop: 04/23/18 19:01 Mineral Oil (Mineral Oil 30 Ml) 30 ml NG DAILY [facility] Stop: 04/27/18 15:44 Miscellaneous (Vancomycin Iv Per Pharmacy) 1 ea PRN PRN PRN Reason: PROTOCOL Stop: 04/23/18 13:20 Miscellaneous (Zosyn Iv Per Pharmacy) 1 ea PRN PRN PRN Reason: PROTOCOL Stop: 04/23/18 19:06 Miscellaneous (Ppn Per Pharmacy) 1 ea PRN PRN PRN Reason: PROTOCOL Stop: 04/25/18 12:21 Morphine Sulfate (Morphine) 1 mg IVP Q4H PRN PRN Reason: Severe Pain Stop: 04/23/18 20:17 Last Admin: 02/26/18 12:35 Dose: 1 mg Polyethylene Glycol (Miralax) 17 gm NG DAILY [facility] Stop: 04/28/18 08:59 General: Alert, No acute distress, Moderate distress HEENT: Atraumatic, Mucous membr. moist/pink, Other (on bipap) Neck: Supple Cardiovascular: Regular rate, Normal S1, Normal S2, Systolic murmurs Lungs: Other (bilateral crackles) Abdomen: Bowel sounds, Distended Extremities: Pulses Psych/Mental Status: Other (confused) Assessment/Plan - Assessment Assessment: 1. Fecal Retention 2. Abdominal Distention 3. Tachypnea 4. Respiratory failure -Continue with daily enema until colon is cleared -Daily mineral oil -optimize electrolytes -other care per primary team -Will follow
[2018-02-26] MEDS ORDERED: TPN 10%-70% CUSTOM IV SCH (16:00)
[2018-02-26] MEDS: Meropenem 1 GM in Sodium Chloride 0.9% 100 ML IV SCH (16:46)
--- NOTE | 2018-02-26 17:55 | Progress Notes ---
DATE: 02/26/2018 PULMONARY PROGRESS NOTE PROBLEM LIST: 1. Persistent febrile episode. 2. Tracheobronchitis. 3. Underlying mentally and physically development delay. The patient is moaning, still on a BiPAP. No respiratory distress, tachypneic. Temperature is down 98 now and FiO2 was decreased to 50%. OBJECTIVE: VITAL SIGNS: The patient's temperature is T-max earlier was 100.2, currently 99, BP is 133/84, respirations in 20s and sometimes 40 shallow breathing, but no respiratory distress, still on a BiPAP 40%. ENT: Shows no new changes. CHEST: Shows occasional rhonchi with diminished air entry. HEART: Regular, slightly tachycardic. ABDOMEN: Soft, nontender. LABORATORY DATA: The patient's white count is 14.2, pO2 is 77 and sodium is 154, chloride is 116. Electrolytes are okay. IMPRESSION: The patient clinically appears to be stable on the site was improving respiratory navas. PLANS AND SUGGESTIONS: Continue current treatment, slowly decrease FiO2, etc. and go from there. JOB# [id number]
[2018-02-26] MEDS: Dextrose 5% 1,000 ML IV SCH (19:14)
[2018-02-26] MEDS: POLYETHYLENE GLYCOL 3350 17 GM PACK NG SCH (21:25)
--- NOTE | 2018-02-26 21:40 | Progress Notes ---
DATE: 02/26/[address] De Los Santos. Case was discussed with staff of the patient with treatment plans and goals. I viewed medication. The patient is developmentally disabled, was admitted with fecal impaction. The patient is currently in ICU, the patient was shaky and Dr. De Los Santos have to adjust his medications on the 02/25/2018, where he took him off the Seroquel and decrease the Haldol. The patient continues to be in ICU, continues to be nonverbal, ____, he has been on Ativan as needed. The patient needs follow up with a psychiatrist when discharged. Thank you very much for allowing me to participate in the care of this most interesting gentleman. JOB# [id number]
[2018-02-27] MEDS: INSULIN ASPART SLIDING SCALE 100 UNITS/ML UNIT SUBQ SCH ×3 (00:10→12:08)
[2018-02-27] MEDS: Haloperidol Lactate 5 mg/mL 1mL Vial IM PRN ×2 (02:15→11:16)
[2018-02-27] MEDS: Meropenem 1 GM in Sodium Chloride 0.9% 100 ML IV SCH ×3 (06:31→14:22)
[2018-02-27] MEDS: Budesonide 0.5 Mg/2 mL Ud HHN SCH (07:05)
[2018-02-27] MEDS: Albuterol/Ipratropium Neb 3 ML AERS HHN SCH ×3 (07:28→14:23)
[2018-02-27 07:51] LABS: MEAN PLATELET VOLUME 8.1 fl; PLATELET COUNT 226 Th/cmm (150-400)
[2018-02-27] MEDS: POLYETHYLENE GLYCOL 3350 17 GM PACK NG SCH (08:18)
[2018-02-27] MEDS: Menthol/Zinc Oxide Oint 113gm Tube TP SCH (08:18)
[2018-02-27 08:21] LABS: ALB/GLOB RATIO 1.3 (1.0-1.8); ALBUMIN 3.5 gm/dL (4.2-5.5); ALKALINE PHOSPHATASE 63 U/L (34-104); BILIRUBIN,TOTAL 0.9 mg/dL (0.3-1.0); BUN - UREA NITROGEN 21 mg/dL (7-25); CALCIUM SERUM 9.2 mg/dL (8.6-10.3); CARBON DIOXIDE 27.7 mEq/L (21.0-31.0); CHLORIDE 111 mEq/L (98-107); GLUCOSE 142 mg/dL (70-105); MAGNESIUM 2.2 mg/dL (1.9-2.7); PHOSPHOROUS 2.4 mg/dL (2.5-5.0); POTASSIUM SERUM 3.7 mEq/L (3.5-5.1); SGOT 116 U/L (13-39); SGPT/ALT 93 U/L (7-52); SODIUM SERUM 148 mEq/L (136-145); TOTAL PROTEIN,SERUM 6.2 gm/dL (6.0-8.3)
[2018-02-27 08:27] LABS: HEMATOCRIT 44.9 % (41.0-60); HEMOGLOBIN 14.9 gm/dL (12-16); MEAN CORPUSCULAR HEMOGLOBIN 29.2 pg (26.0-30.0); WHITE BLOOD COUNT 12.8 Th/cmm (4.8-10.8)
[2018-02-27 08:28] LABS: MEAN CORPUSCULAR HGB CONC 33.2 pg (28.0-36.0)
--- NOTE | 2018-02-27 09:06 | Diagnostic Imaging Report ---
Exam: KUB of the abdomen HISTORY: Fecal impaction. I needs: Supine examination the abdomen was reviewed the study demonstrates nonspecific bowel gas pattern. Bony structures intact. No abnormal masses or calcifications noted. IMPRESSION: Unremarkable exam of the abdomen.
--- NOTE | 2018-02-27 09:06 | Diagnostic Imaging Report ---
Exam: Chest x-ray HISTORY: Pneumonia Findings: Portable examination of the chest at the 0816 hours reviewed the study compared to prior examination of the earlier demonstrates NG tube with tip in the stomach. No acute pulmonic infiltrates or effusions are noted. Bony thorax intact IMPRESSION: No acute disease.
[2018-02-27 09:28] LABS: BAND NEUTROPHILE 1 % (0-10); BASOPHIL 0 % (0-3); EOSINOPHIL 3 % (0-5); LYMPHOCYTE 8 % (20-50); MONOCYTE 5 % (2-10); NEUTROPHILS 83 % (40-80)
[2018-02-27] MEDS ORDERED: Probiotic Screen MC PRN (09:37)
[2018-02-27 10:06] LABS: pH 7.28 (7.35-7.45)
--- NOTE | 2018-02-27 12:57 | Progress Notes ---
DATE: LOCATION: [facility]. ICU Bed: #7. SUBJECTIVE: The patient is on a BiPAP and TPN. Good urine output. The patient could not tolerate tube feeding. PHYSICAL EXAMINATION: VITAL SIGNS: Respiration 45, blood pressure 110/60, and heart rate 120. Yesterday's intake 4500. HEART: Regular. LUNGS: Good air entry. Few rhonchi in both bases. ABDOMEN: Soft. EXTREMITIES: No edema. SIGNIFICANT LABORATORY DATA: Sodium decreased to 154, potassium 3.7, BUN 26, and blood sugar 131. ASSESSMENT: 1. Acute kidney injury, improving. 2. Hypernatremia, improving. 3. Water deficit, improving. 4. Respiratory failure. 5. Leukocytosis. PLAN: Continue dextrose IV and continue water via G-tube. Continue TPN. Lab in the morning. Agree with transfer to [facility]. JOB# [id number]
[2018-02-27 13:14] LABS: CREATININE - SERUM 0.6 mg/dL (0.7-1.3); GFR AFRICAN-AMERICAN > 60.0 ml/min (>90); GFR NON AFRICAN-AMERICAN > 60.0 ml/min
[2018-02-27] MEDS ORDERED: Lactobacillus Rhamnosus GG 15 Billion CFU CAP.SPRINK PO SCH (14:00)
== END 2018-02-27 15:35 | DRG 871 ==
LOC: ER 16:57 → MSI 18:57 → ICU 02-22 13:50
PROVIDERS: ADMIT Internal Medicine; ATTEND Internal Medicine
PROC: 5A09557 Assistance with Respiratory Ventilation, Greater than 96 Consecutive Hours, Continuous Positive Airway Pressure (ICD-10-PCS; 2018-02-22)
PROC: 3E0336Z Introduction of Nutritional Substance into Peripheral Vein, Percutaneous Approach (ICD-10-PCS; principal; 2018-02-26)
DX: A41.9 Sepsis, unspecified organism (principal); J96.91 Respiratory failure, unspecified with hypoxia; J18.9 Pneumonia, unspecified organism; N17.9 Acute kidney failure, unspecified; N39.0 Urinary tract infection, site not specified; E87.0 Hyperosmolality and hypernatremia; F79 Unspecified intellectual disabilities; K56.41 Fecal impaction; F29 Unspecified psychosis not due to a substance or known physiological condition; E87.6 Hypokalemia; E86.0 Dehydration; F03.90 Unspecified dementia, unspecified severity, without behavioral disturbance, psychotic disturbance, mood disturbance, and anxiety; K46.9 Unspecified abdominal hernia without obstruction or gangrene; F31.9 Bipolar disorder, unspecified; G80.9 Cerebral palsy, unspecified
CPT/HCPCS: 36415-UA; 36600-90; 71045-TC; 71046-TC; 74000-TC; 80048-TC; 80053-TC; 80076-TC; 80202-TC; 81001-TC; 82330-90; 82465-TC; 82803-TC; 82948-90; 83605; 83735-TC; 84100-TC; 84134-90; 84443-TC; 84478-TC; 85007-TC; 85025-TC; 85610-TC; 85730-TC; 87070; 93005; 94640; 94660; 94760; 96374; 96375; J0696; J1580; J1630; J1815; J1956; J2001; J2060; J2185; J2270; J2543; J3370; J3480; J7030; J7040; J7042; J7070; J7613; Q0162; X6598; X7704; Z7610